=== PATIENT | female | born 1965 | race Caucasian/White ===

== ENCOUNTER 2020-03-29 15:56 | Emergency (ER) | payer SELFPAY ==
--- NOTE | ~2020-03-29 | XR_ITS ---
EXAMINATION: XR foot LT min 3V EXAM DATE: 03/29/2020 16:47 INDICATION: No known injury, bump on heel for 10 days. TECHNIQUE: Left foot dorsoplantar, lateral and oblique projections obtained and reviewed. There is n o prior study for comparison. FINDINGS: Left metatarsal bones unremarkable. Tiny inferior calcaneal spur. There are no acute calca gauri fractures or dislocations identified. Bunion and mild hallux valgus. There is no subcutaneous ga s. There is soft tissue swelling over the heel. There are no radiopaque foreign bodies. IMPRESSION: Nonspecific heel fat-pad swelling. Reviewed, dictated and finalized at location A. [employer]
[2020-03-29 16:15] VITALS: BP 174/86; PULSE 97; RESP 16; TEMP 36.6; O2SAT 98
--- NOTE | 2020-03-29 16:34 | ED.GENADULT ---
HPI - General Adult General Chief complaint: Skin/Abscess/Foreign Body Stated complaint: bottom of left foot spot Source: patient Mode of arrival: ambulatory Limitations: no limitations History of Present Illness HPI narrative: Patient presents for evaluation of lesion to the left heel. She first noticed her symptoms about a week ago. She states that she is on her feet for most of the day when she works at [employer]. She attempted to look at the affected area but it was difficult to visualize due to the anatomic location of the discomfort. She saw black spot and thought it was a plantars wart. She attempted to research this on the Internet and applied some clear nail estonian to the affected area. Seems to help reduce her pain. She does admit to smoking 1-1/2 packs/day and drinks several beers daily. She is not diabetic. She states her last tetanus shot was in the last 3 years. Weightbearing makes her pain worse. No descriptive quality or numerical rating to the pain. No radicular component. No paresthesias. Related Data Allergies Allergy/AdvReac Type Severity Reaction Status Date / Time No Known Allergies Allergy Verified 03/29/20 16:22 Review of Systems Review of Systems: Narrative: CONSTITUTIONAL: Denies fever, chills, or sweats. EYES: Denies visual changes, redness, or discharge. ENT: Denies rhinorrhea, congestion, sore throat, or otalgia. CARDIOVASCULAR: Denies chest pain, palpitations, or edema. RESPIRATORY: Denies cough or dyspnea. GASTROINTESTINAL: Denies abdominal pain, nausea, vomiting, or diarrhea. GENITOURINARY: Denies dysuria or hematuria. SKIN: Denies rash or itching. Reports a black spot to the left heel MUSCULOSKELETAL: Denies back pain. Reports pain in the left heel NEUROLOGIC: Denies headache, numbness, dizziness, or weakness. PSYCHIATRIC: Denies anxiety or depression. [facility] Past Medical History Medical History (Updated 03/29/20 @ 17:10 by Dionisio Deluca, [facility], ) Alcohol abuse Tobacco abuse Surgical History Surgical History History of hysterectomy Family History Family History Mother Heart disease Social History Social History (Updated 03/29/20 @ 16:39 by Dionisio Deluca, [facility] [place], ) Smoking packs per day: 1.5 Smoking cigarettes per day: 30.0 Smoking status: Current every day smoker Alcohol intake: current Alcohol use details: Several beers daily Substance use: never Living arrangements: alone Occupation/Education: occupation Additional occupation/education comments: [employer] Gender identity (if verbalized by the patient): Female Sexual Orientation (if Verbalized by the Patient): Straight or Heterosexual Exam Narrative: Exam Narrative: GENERAL: Well-appearing, well-nourished, and in no acute distress. HEAD: Normocephalic, atraumatic. EYES: PERRLA and EOMI. ENT: Nares clear, no rhinorrhea or epistaxis. Mucous membranes moist. Oropharynx without tonsillar hypertrophy exudate or other lesions. Bilateral TMs pearly [place] nonbulging NECK: Supple. No adenopathy or masses. No carotid bruits or JVD CHEST: Clear to auscultation. No respiratory distress. No wheezes rales or rhonchi HEART: Regular rate and rhythm. No murmur heard. Normal peripheral pulses. ABDOMEN: Soft, nontender, nondistended, normal active bowel sounds. EXTREMITIES: Normal range of motion. No edema. Tenderness noted over lesion to the left calcaneus SKIN: Warm, dry, no rash. Approximately 1.5 cm fissured lesion to the left calcaneus with surrounding hypertrophic changes NEURO: No focal deficits. Alert and oriented x3. PSYCH: Normal mood and affect. Course Course Emergency Course: This is a 55-year-old female with 1 week worth of left heel pain associated with a lesion to the heel. On physical exam there is a fissure noted but there appears to be some clear nail p
[2020-03-29 16:47] LABS: Glucose Point of Care 85 (65-105)
== END 2020-03-29 17:24 | disposition home or self-care (01) ==
PROVIDERS: Emergency Provider Nurse Practitioner
DX: L98.9 Disorder of the skin and subcutaneous tissue, unspecified (principal); M79.672 Pain in left foot; R23.4 Changes in skin texture; F17.210 Nicotine dependence, cigarettes, uncomplicated
CPT/HCPCS: 73630; 82948; 99213; G0463

== ENCOUNTER 2024-08-07 11:47 | Emergency (ER) | payer OTHER, SELFPAY ==
--- OUTSIDE RECORDS SUMMARY | 2024-08-07 11:51 | XMS_ITS | Clinical Summary ---
Author Organization [facility] Address [address] [place] [address] Care Team Providers Care Operations Accountant Name Role Phone No, Physician Primary Care Provider [phone] Allergies No known active allergies Medications nicotine (NICODERM CQ) [address] 1 patch on the skin daily. 30 patch 8 Active mometasone-formot jhoana (DULERA 100) 100-5 mcg/actuation inhalerIndication s:Prevention of Bronchospasms with Emphysema Inhale 2 puffs 2 (two) times a day. Rinse mouth with water after use to reduce aftertaste and incidence of candidiasis. Do not swallow. 13 g 1 8 Active albuterol HFA (PROVENTIL HFA,VENTOLIN HFA,PROAIR HFA) 90 mcg/actuation inhaler Inhale 2 puffs every 4 (four) hours as needed for wheezing 1 each 3 Active Active Problems Problem Noted Date Diagnosed Date Pneumonia of right middle lobe due to infectious organism COPD exacerbation Bronchitis Tobacco use disorder Surgical History Surgery Date Site/Laterality Comments HYSTERECTOMY Social History Tobacco Use Types Packs/Day Years Used Date Smoking Tobacco: Every Day Cigarettes 1 20 Smokeless Tobacco: Never Tobacco Cessation:Ready to Q uit: Yes; Counseling Given: Yes Alcohol Use Standard Drinks/Week Comments Yes 8 (1 standard drink = 0.6 oz pur e alcohol) 8 beers a day Personal Safety Answer Date Recorded Have you ever been in or are you currently in a harmful physical or emotional relationship or is someone making you feel afraid or unsafe? Denies 03/02/2023 Comments No Sex and Gender Information Value Date Recorded Sex Assigned at Not on file Legal Sex Female 10:41 AM GROUTMAN Gender Identity Not on file Sexual Orientation Not on file Obstetrics History Last Filed Vital Signs Vital Sign Reading Time Taken Comments Blood Pressure 130/68 03/02/2023 5:02 PM GROUTMAN Pulse 96 03/02/2023 5:02 PM GROUTMAN Temperature 36.7 C (98.1 F) 03/02/2023 12:46 PM GROUTMAN Respiratory Rate 18 03/02/2023 5:02 PM GROUTMAN Oxygen Saturation 91% 03/02/2023 5:02 PM GROUTMAN Inhaled Oxygen Concentration - - Weight 45.4 kg (100 lb) 03/02/2023 12:46 PM GROUTMAN Height 157.5 cm (5' 2) 03/02/2023 12:46 PM GROUTMAN Body Mass Index 18.29 03/02/2023 12:46 PM GROUTMAN Plan of Treatment Health Maintenance Due Date Last Done Comments Breast Cancer Screening-Mammogram 1963 Colon Cancer Screening-Colonoscopy 1963 Depression Screening 1963 Hepatitis C Screening 1963 DTaP/Tdap/Td Vaccine (1 - Tdap) 1974 Hepatitis B Screening 1981 Regular Well Visit/Exam 18-64 1981 Pneumococcal vaccine <65 (1 of 2 - PCV) 1982 Zoster Vaccine (1 of 2) 2013 Influenza Vaccine (Season Ended) 2024 Insurance [facility] Advance Directives For more information, please contact: [phone] * Full Code (Latest Code Status on File) Date Activated Date Inactivated Comments 06/04/2017 1:03 PM 06/06/2017 4:34 PM Care Teams Operations Accountant Relationship Specialty Start Date End Date No, Physician PCP - General 06/06/17
--- OUTSIDE RECORDS SUMMARY | 2024-08-07 11:51 | XMS_ITS | Referral Summary ---
Author Organization [facility] Address [address] [place] [address] Care Team Providers Care Powertrain Control Systems Engineer Name Role Phone No, Physician Primary Care Provider [phone] Allergies No known active allergies Medications nicotine [...] organism COPD exacerbation Bronchitis Tobacco use disorder Social History Tobacco Use Types Packs/Day Years [...] on file Legal Sex Female 10:41 AM LEAD SHIPPER Gender Identity Not on file Sexual Orientation Not on file Last Filed Vital Signs Vital Sign Reading Time Taken Comments Blood Pressure 130/68 03/02/2023 5:02 PM LEAD SHIPPER Pulse 96 03/02/2023 5:02 PM LEAD SHIPPER Temperature 36.7 C (98.1 F) 03/02/2023 12:46 PM LEAD SHIPPER Respiratory Rate 18 03/02/2023 5:02 PM LEAD SHIPPER Oxygen Saturation 91% 03/02/2023 5:02 PM LEAD SHIPPER Inhaled Oxygen Concentration - - Weight 45.4 kg (100 lb) 03/02/2023 12:46 PM LEAD SHIPPER Height 157.5 cm (5' 2) 03/02/2023 12:46 PM LEAD SHIPPER Body Mass Index 18.29 03/02/2023 12:46 PM LEAD SHIPPER Plan of Treatment Not on file Insurance [facility] Advance Directives For more information, please contact: [phone] * Full Code (Latest Code Status on File) Date Activated Date Inactivated Comments 06/04/2017 1:03 PM 06/06/2017 4:34 PM Care Teams Powertrain Control Systems Engineer Relationship Specialty Start Date End Date No, Physician PCP - General 06/06/17
--- OUTSIDE RECORDS SUMMARY | 2024-08-07 11:51 | XMS_ITS | Data Portability ---
Author Organization [facility] DONTEOralia Yusuf Address [address] [place] [address] Care Team Providers Care Shellfish Sorter Name Role Phone JADON WALSH Primary Care Provider Unavaila ble Assessment Encounter Date Assessment Date Assessment LastModified by Organization Details LastModified Time 04/17/2023 04/17/2023 Pt is a 58 year old female with no significant PMH . She is new to my care and presents to the office to establish care. She states that she produces a lot of mucus (clear) and uses an inhaler quite frequently, stating it is hard for her to breathe. She had Influenza 03/02/23 and was found to have a spot on her lung. I personally saw and examined pt w/resident. Documentation was reviewed, and I agree w/resident's note. Dr. Maldonado [email or web address] Not available 04/20/2023 11:12:42 05/15/2023 05/15/2023 Yadira Rodriguez is a 58y/o F with PMH of benign essential HTN and abnormal chest CT who presents today for her 1-month follow up. Pt's case was discussed w/resident, who is actively attempting to help pt obtain insurance and to be able to follow through with pertinent specialists. Documentation was reviewed, and I agree w/resident's note. Dr. Okeefe [email or web address] Not available 05/16/2023 18:19:09 Plan of Treatment Reminders Order Date Submit Date Provider Last Modified By Organization Details Last Modified Time Details Appointments None record ed. Lab TSH + free T4, serum 2023 024 [place] [facility], [address], [address], 4 11:12:14 lipid panel, serum 2023 024 [place] [facility], [address] [facility] [address], [place], [address], 4 11:12:48 pap, IG + CT/NG/ TV 2013 014 [place] [facility], [address] [facility], [address], [place], [address], 4 06:42:15 Referral gastro entero logist referr al [address], [address] [facility] , [place], [address], 4 11:42:06 oncolo gist referr al - Radiol ogic findin gs concer jenn for malign yareli during ED visit on . She refuse d to be admitt ed for furthe r workup due to financ ial concer ns (lack of insura nce). Kelsy lópez has been smokin g a pack a day for many years and has never had a workup for lung cancer . She curren tly uses an albute rol inhale r daily, multip le times a day as well. Spiriv a inhale r prescr ibed, howeve r, due to kelsy lópez not having insura nce, she cannot afford it at this time. Will refer to oncolo gy and pulmon ology for furthe r workup and manage ment to rule out any possib le malign yareli. 2023 024 [facility], [address] [place] [address] , [facility] [address], [place], [address], 4 14:55:21 pulmon ologis t referr al - Radiol ogic findin gs concer jenn for malign yareli during ED visit on . She refuse d to be admitt ed for furthe r workup due to financ ial concer ns (lack of insura nce). Kelsy lópez has been smokin g a pack a day for many years and has never had a workup for lung cancer . She curren tly uses an albute rol inhale r daily, multip le times a day as well. Spiriv a inhale r prescr ibed, howeve r, due to kelsy lópez not having insura nce, she cannot afford it at this time. Will refer to oncolo gy and pulmon ology for furthe r workup and manage ment to rule out any possib le malign yareli. 2023 024 [facility] Bryant Chen, [address] [facility], [place], [address], 5 14:06:42 Procedures None record ed. Surgeries None record ed. Imaging MAMMO, screen ing, bilate ral 2023 024 [email or web address] [facility], [address] [place], [address], 4 12:17:04 routin e mammog daylin exam, screen ing 2013 014 [email or web address] Not available 4 09:40:33 Medication Orders Spiriv a Respim at 2.5 mcg/ac tuatio n soluti on for inhala tion 2023 024 [id number], [address] [place], [address], 4 17:19:23 losart an 25 mg tablet 2023 024 [email or web address] [facility][id number], [address] [place], [address], 4 22:13:57 Flagyl 500 mg tablet 2013 014 INTERFACE Not available 4 16:53:06 Patient TargetsNo targets recorded. Patient Instructions Encounter Date Encounter Id Patient Instructions Last Modified By Organization Details Last Modified Time 04/17/2023 [id number] Patient has no insurance which complicates followup for patient's medical concerns. Information was provided to patient and daughter about the Rubina program at [facility] and how to apply to Medicaid. 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 She refused to be admitted for further workup due to financial concerns (lack of insurance). Patient has been smoking a pack a day for many years and has never had a workup for lung cancer. She currently uses an albuterol inhaler daily, multiple times a day as well. Spiriva inhaler prescribed, however, due to patient not having insurance, she cannot afford it at this time. Will refer to oncology and pulmonology for further workup and management to rule out any possible malignancy. Referring Physician: Jadon Walsh, General Brown, Encounter Date: 04/17/2023 Vice President Of Marketing Referral for C T of chest abnormal Radiologic findings concerning for malignancy during ED visit on 03/02/23. She refused to be admitted for further workup due to financial concerns (lack of insurance). Patient has been smoking a pack a day for many years and has never had a workup for lung cancer. She currently uses an albuterol inhaler daily, multiple times a day as well. Spiriva inhaler prescribed, however, due to patient not having insurance, she cannot afford it at this time. Will refer to oncology and pulmonology for further workup and management to rule out any possible malignancy. Referring Physician: General Stephanie Guerra, Encounter Date: 04/17/2023 Results Created Date Observation Date Name Description Value Unit Range Abnormal Flag Note LastModifiedBy Organization Detail LastModifiedTime 02/06/20 14 02/06/2014 pap, IG + CT/NG /TV age gdln acog testing 30-65 Not Available [facility] ([facility]) [address] [facility], [place], [address], 02/11/2014 06:42:14 02/06/20 14 02/08/2014 pap, IG + CT/NG /TV diagnosis: FABRICIO ROBERTSON FOR INTRA EPITH ELIAL LESIO N AND NJ BYRD . TRICH OMONA S VAGIN ESTEFANY IS PRESE NT. CELLU OREN COREAS ES ASSOC IATED WITH INFLA MMATI ON ARE PRESE NT. Not Available [facility] ([facility]) [address] [place], [address], 02/11/2014 06:42:14 02/06/20 14 02/08/2014 pap, IG + CT/NG /TV specimen adequacy: FABRICIO López SATIS FACTO RY FOR EVALU ATION . NO ENDOC ERVIC AL CELLS ARE PRESE NT. THIS IS CONSI STENT WITH A HISTO RY OF HYSTE RECTO MY. Not Available [facility] ([facility]) [address] [place], [address], 02/11/2014 06:42:14 02/06/20 14 02/08/2014 pap, IG + CT/NG /TV clinician provided ICD9: FABRICIO López V76.4 7 ; SPECI AL SCREE EJNN FOR NJ NORRIS NEOPL ASMS, VAGIN A Not Available [facility] ([facility]) [address] [place], [address], 02/11/2014 06:42:14 02/06/20 14 02/08/2014 pap, IG + CT/NG /TV performed by: FABRICIO DENNIS CYTOT MALOU López (ASCP ) Not Available [facility] ([facility]) [address] [place], [address], 02/11/2014 06:42:14 02/06/20 14 02/08/2014 pap, IG + CT/NG /TV . . Not Available [facility] ([facility]) [address] [place], [address], 02/11/2014 06:42:14 02/06/20 14 02/08/2014 pap, IG + CT/NG /TV note: COMMEN T THE PAP SMEAR IS A SCREE JENN TEST DESIG EARLINE TO AID IN THE DETEC TION OF ROBERTA LIGNA NT AND MALIG NANT CONDI TIONS OF THE UTERI NE CERVI X. IT IS NOT A DIAGN OSTIC PROCE DURE AND SHOUL D NOT BE USED THE SOLE MEANS OF DETEC TING CERVI CASIE CANCE R. BOTH FALSE -POSI TIVE AND FALSE -NEGA TIVE REPOR TS DO OCCUR . . Not Available [facility] ([facility]) [address] [place], [address], 02/11/2014 06:42:14 02/06/20 14 02/10/2014 pap, IG + CT/NG /TV HPV, high-risk NEGATI VE negati ve THIS HIGH- RISK HPV TEST DETEC TS THIRT EEN HIGH- RISK TYPES (16/1 8/31/ 33/35 /39/4 /51/ 52/56 /58/5 ) WITHO UT DIFFE RENTI ATION . . Not Available [facility] ([facility]) [address] [place], [address], 02/11/2014 06:42:14 02/06/20 14 02/10/2014 pap, IG + CT/NG /TV chlamydia, nuc. acid amp NEGATI VE negati ve Not Available [facility] ([facility]) [address] [place], [address], 02/11/2014 06:42:14 02/06/20 14 02/10/2014 pap, IG + CT/NG /TV gonococcus, nuc. acid amp NEGATI VE negati ve Not Available [facility] ([facility]) [address] [place], [address], 02/11/2014 06:42:14 02/06/20 14 02/10/2014 pap, IG + CT/NG /TV trich vag by HERON POSITI VE negati ve abnormal Not Available [facility] ([facility]) [address] [place], [address], 02/11/2014 06:42:14 04/19/19 24 04/20/2023 LIPID PANEL cholesterol, total 178 mg/dL 100-19 9 Not Available [facility] ([facility]) [address] [facility] [place], [address], 04/20/2023 11:12:48 04/19/19 24 04/20/2023 LIPID PANEL triglyceride s 58 mg/dL 0-149 Not Available [facility] ([facility]) [address] [place], [address], 04/20/2023 11:12:48 04/19/19 24 04/20/2023 LIPID PANEL HDL cholesterol 76 mg/dL >39 Not Available [facility] ([facility]) [address] [place], [address], 04/20/2023 11:12:48 04/19/19 24 04/20/2023 LIPID PANEL VLDL cholesterol casie 11 mg/dL 5-40 Not Available [facility] ([facility]) [address] [facility], [place], [address], 04/20/2023 11:12:48 04/19/19 24 04/20/2023 LIPID PANEL LDL chol calc ([facility]) 91 mg/dL 0-99 Not Available [facility] ([facility]) [address] [place], [address], 04/20/2023 11:12:48 04/19/19 24 04/20/2023 TSH RFX ON ABNOR MAL TO FREE T4 TSH 1.960 uIU/m L 0.450- 4.500 Not Available [facility] ([facility]) [address] [place], [address], 04/20/2023 11:12:49 04/20/19 24 03/02/2023 CT, chest , w/ contr ast No observ ation record ed. [email or web address] Not Available 2023 15:10:32 Result Notes None recorded. Problems Name Problem SNOMED Code Status Onset Date Resolution Date Notes Provider Name and Address Organization Details Recorded Time Wheezing 97450278 Active 2023 JADON WALSH MD Attn: Accounting ,[address] [place], [address] , [place] [facility] 4 19:25:57 CT of chest abnormal 03680111951 965855 Active 2023 JADON WALSH MD Attn: Accounting ,[address] [place], [address] , [facility] 4 08:52:03 Tobacco user 044045321 Active 2023 JADON WALSH MD Attn: Accounting ,[address] [place], [address] , [facility] 4 19:25:54 Benign essential hypertens ion 9767443 Active 2023 JADON WALSH MD Attn: Accounting ,[address] [place], [address] , [facility] 4 19:25:47 Infection by Trichomon as [id number] Completed 05/13/2023 JADON WALSH MD Attn: Accounting ,[address] [place], [address] , [place] [facility] 4 15:14:00 Notes:Vaginal bleeding a few weeks ago Problem Notes None recorded. Procedures Surgical History Date Name Laterality Status Provider Name and Address Organization Details Recorded Time 02/06/20 14 Date of Last Pap Smear completed Nataliia Araya [place] [facility] 02/11/2014 16:34:53 Hysteroscopy completed Dayna Frey [place] [facility] 15:16:14 Tubal Ligation completed Dayna Frey [facility] 02/05/2014 15:16:14 Imaging Results None recorded. Procedure Notes None recorded. Medical Equipment None Reported. Allergies No known drug allergies Medications Name Sig Start Date Stop Date Status Note LastModified by Organization Details LastModified Time ipratropium 0.5 mg-albutero l 3 mg (2.5 mg base)/3 mL nebulizatio n soln 04/17 completed Not Available Not Available Not Available azithromyci n 250 mg tablet 04/17 completed Not Available Not Available Not Available prednisone 20 mg tablet 04/17 completed Not Available Not Available Not Available diphenoxyla te-atropine 2.5 mg-0.025 mg tablet 04/17 completed Not Available Not Available Not Available Flagyl 500 mg tablet Take 1 tablet twice a day by oral route after meals for 7 days. 02/18 completed Not Available Not Available Not Available losartan 25 mg tablet TAKE 1 TABLET BY MOUTH EVERY DAY DIRECTED active Not Available Not Available No t Available nicotine 21 mg/24 hr daily transdermal patch 04/17 completed Not Available Not Available Not Available methylpredn isolone 4 mg tablets in a dose pack TAKE 6 TABLETS ON DAY 1 DIRECTED ON PACKAGE AND DECREASE BY 1 TAB EACH DAY FOR A TOTAL OF 6 DAYS 04/17 completed Not Available Not Available Not Available albuterol sulfate HFA 90 mcg/actuati on aerosol inhaler INHALE 2 PUFFS BY MOUTH EVERY 4 HOURS DIRECTED active Not Available Not Available No t Available cefdinir 300 mg capsule 04/17 completed Not Available Not Available Not Available amoxicillin 875 mg-potassiu m clavulanate 125 mg tablet TAKE 1 TABLET BY MOUTH EVERY 12 HOURS FOR 5 DAYS 04/17 completed Not Available Not Available Not Available nicotine 7 mg/24 hr daily transdermal patch Apply 1 patch every day by transderm al route as directed for 30 days. 2023 active Not Available Not Available Not Avai lable Dulera 100 mcg-5 mcg/actuati on HFA aerosol inhaler 04/17 completed Not Available Not Available Not Available Spiriva Respimat 2.5 mcg/actuati on solution for inhalation Inhale 2 puffs every day by inhalatio n route as directed for 30 days. 2023 active Not Available Not Available Not Avai lable Vitals Date Recorded Body weight Body temperature Heart rate Oxygen saturation Oxygen saturation in Arterial blood by Pulse oximetry Systolic blood pressure Diastolic blood pressure Provider Name and Address Organization Details Last Updated DateTime 4 65716.3 5 g 98.1 [degF] 94 /min 95 % 95 % 174 mm[Hg] 82 mm[Hg] Merlene Farrar MA [facility] 4 16:16:35 Date Recorded Systolic blood pressure Diastolic blood pressure Provider Name and Address Organization Details Last Updated DateTime 04/17/2023 160 mm[Hg] 82 mm[Hg] Flores Hardin MA [facility] 04/17/2023 17:16:54 Date Recorded Body weight Body mass index (BMI) Body height Body temperature Heart rate Oxygen saturation Oxygen saturation in Arterial blood by Pulse oximetry Respiratory rate Systolic blood pressure Diastolic blood pressure Provider Name and Address Organization Details Last Updated DateTime 4 50028.7 9 g 19.4 kg/m2 157.48 cm 97.6 [degF] 82 /min 99 % 99 % 16 /min 147 mm[Hg] 83 mm[Hg] Merlene Farrar MA [facility] 4 16:17:09 Date Recorded Body height Body mass index (BMI) Body weight Systolic blood pressure Diastolic blood pressure Provider Name and Address Organization Details Last Updated DateTime 02/05/2014 157.48 cm 21.4 kg/m2 40571.30 729 g 142 mm[Hg] 80 mm[Hg] Dayna Frey [facility] 4 15:16:14 Date Recorded Body height Body mass index (BMI) Body weight Systolic blood pressure Diastolic blood pressure Provider Name and Address Organization Details Last Updated DateTime 02/11/2014 157.48 cm 21.4 kg/m2 22338.30 729 g 128 mm[Hg] 80 mm[Hg] Nataliia Araya [facility] 4 16:34:53 Social History Question Answer Notes LastModified by Organizat ion Details LastModified Time Tobacco Smoking Status Current Every Day Smoker Dayna Frey [facility] 02/05/2014 15:16:14 What Was The Date Of Your Most Recent Tobacco Screening? 05/15/2023 Information not available 05/15/2023 How Many Children Do You Have? 3 Information not available 02/05/2014 What Is Your Relationship Status? [email or web address] Information not available 02/05/2014 Are You Sexually Active? Yes Information not available 02/05/2014 At What Age Did You Start Smoking Tobacco? 14 [email or web address] Information not available 02/05/2014 How Much Tobacco Do You Smoke? 1 PPD Information not available 04/17/2023 Has Tobacco Cessation Counseling Been Provided? No Information not available 04/17/2023 Sex: Female Functional Status None recorded. Mental Status None recorded. Family History Relationship Description Onset Age of this Age Resolved Age Notes LastModified by Organization Details LastModified Time Mother Heart disease [email or web address] Not available 2013 15:16:14 Medical History Condition Response Cancer Y Gynecological History Statement/Question Response Menses Monthly N Date of Last Pap Smear 02/05/2014 Current Control Method Hysterectom y Most Recent Mammogram Sexually Active? Y Obstetrics History GPAL:G 3 P 3 0 0 3 Type Value Full Term 3 Living 3 Total 3 Past Encounters Encounter ID Performer Location Encounter Start Date Encounter Closed Date Diagnosis/Indication Diagnosis SNOMED-CT Code Diagnosis ICD10 Code Diagnosis Note [id number] MD Dedrick Duran ([place] [address]) [address] [facility] [facility] [place] [address] 02/05/2014 14:55:01 02/06/2014 09:44:51 Screening for cancer [id number] MD Dedrick Duran ([facility] [place] [address]) [address] [place] [address] 02/11/2014 16:19:32 02/11/2014 16:57:22 Infection by Trichomonas [id number] MD Dedrick Sen 14 IM [address] [facility] [facility] [address] [place], [place] [address], [place] [address] 04/17/2023 15:41:55 04/24/2023 07:54:20 Adult health examination 496092391 Z00.00 Patient presents today to establish care. Wheezing 80091224 R06.2 Wheezing present on exam. States that she has wheezing daily and uses his albuterol inhaler frequently throughout the day. In light of recent CT chest that shows possible mass to lung, will refer to pulmonolog y as well as to oncology. Will also start Spiriva inhaler for maintenanc e use. Screening mammography 24 524578 Z12.31 Patient has never had a mammogram, will refer. Screening for malignant neoplasm of colon 390812418 Z12.11 Patient has never had a colonoscop y, will refer. CT of chest abnormal 929 0182043 0912793 R93.89 Radiologic findings concerning for malignancy . Patient has been smoking a pack a day for many years and has never had a workup for lung cancer. She currently uses an albuterol inhaler daily, multiple times a day as well. Spiriva inhaler prescribed , however, due to patient not having insurance, she cannot afford it at this time. Will refer to oncology and pulmonolog y for further workup and management to rule out any possible malignancy . Benign ess ential hypertension 7215210 I10 [id number] MD Dedrick Sen 14 IM [address] [facility] [address] [place] [address] 05/15/2023 16:06:13 05/17/2023 08:53:58 CT of chest abnormal [id number] 0654138 R93.89 Radiologic findings concerning for malignancy . Patient has been smoking a pack a day for many years and has never had a workup for lung cancer. She currently uses an albuterol inhaler daily, multiple times a day as well. Spiriva inhaler prescribed , however, due to patient not having insurance, she cannot afford it at this time. Referrals sent to pulmonolog y and oncology. Patient needs to get set up with insurance first and then call to get appointmen t to see pulmonolog y. Referral printout provided to patient today in clinic. Health Concerns Section Related Observation LastModified by Organization Detai ls LastModified Time None Recorded Concern Status LastModified by Organization Details LastModified Time None Recorded Advance Directives Directive None Recorded Payers Encounter Date Sequence Insurance Name Policy Number Policy Singh Covered Member ID Singh Member ID Guarantor Name 02/05/2014 1 [facility] (MEDICAID HMO) Yadira Livezey [id number] Yadira Livezey 02/11/2014 1 [employer] (MEDICAID HMO) Yadira Livezey [id number] Yadira Livezey 04/17/2023 1 *SELF PAY* Orozco Notes Date Note Type Note Provider Name and Address Organization Details Recorded Time 04/17/2023 text/html HPIPt is a 58 ye ar old female with no significant PMH . She is new to my care and presents to the office to establish care. She states that she produces a lot of mucus (clear) and uses an inhaler quite frequently, stating it is hard for her to breathe. She had Influenza 03/02/23 and was found to have a spot on her lung. It was recommended that patient be admitted for further workup at that time, however due to financial strain she elected to not be admitted. Past Medical History - as noted in HPIAllergies: NoneMedications: Albuterol inhaler daily, multiple times Family HistoryMom: Triple bypass, HTN, HLD, DMDad: UnknownSiblings: Unknown Social HistoryRelationship: Not in relationshipKids: 3 kids, 2 still livingSafe: YesWork: Works at [employer] Eats CEDU daily, also eats fruit and veggiesExercise: Walks a lot on the jobETOH: Drinks alcohol daily (couple of beers a day)Tobacco: Smokes pack a day since high schoolDrugs: THC vape, no other drugs Sexual historyPrevious STD: No past historyLast time had STD testing: Not UTD Health maintenanceLast Colonoscopy: Not UTDLast Mammo: Not UTDPap: Not UTDCOVID: Not UTDFlu: Not UTD Patient has no insurance which complicates followup for patient's medical concerns. Information was provided to patient and daughter about the Rubina program at [facility] and how to apply to Medicaid. JADON WALSH MD Attn: Accounting,[address] [place], [address], [facility] 04/21/2023 16:33:26 05/15/2023 text/html Yadira Rodriguez i s a 58y/o F with PMH of benign essential HTN and abnormal chest CT who presents today for her 1-month follow up. Today, patient denies any SOB, CP, cough or wheezing. She states that she feels fine but has not been able to get in to see pulmonology or oncology. She states they have tried contacting her but have not been able to reach her. She also states that she was told she would not be able to see them unless I spoke with them first. I printed both referrals for patient and called with her in the room to help get her set up. Patient does not have any insurance and is currently self-pay. Provided information about insurance at previous visit, but patient states she cannot afford it. While on the phone, the rep stated patient should be able to get set up with [employer] for insurance and would mail her the information to fill out today. Patient agreed. Goal is for patient to get set up with insurance, and then to call to get set up with pulmonology appointment. Shahram Okeefe MD Attn: Accounting[address] [facility], [place], [address], [facility] 05/16/2023 18:19:20 OBGyn Episode No OBEpisode recorded.
--- OUTSIDE RECORDS SUMMARY | 2024-08-07 11:51 | XMS_ITS | Clinical Summary ---
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 Gender Identity Not on file Sexual Orientation Not on file Plan of Treatment Health Maintenance Due Date Last Done Comments Hepatitis C Virus (HCV) Screening 1965 Mammogram 1963 TdaP Immunization 1963 Pap Smear 01/12/1984 Cervical Cancer Screening (CCS) 1993 HPV/Cotest 1993 Colonoscopy 01/12/2008 Colorectal Cancer Screening 01/12/2008 Cologuard 2013 Immunochemical Fecal Occult Blood 2013 Pneumococcal Immunization (5 0+ years) (1 of 1 - PCV) 2013 Zoster Immunization (1 of 2) 2013 Influenza Immunization (#1) 2023 SARS-COV-2 Immunization (2023- season) 2023 Respiratory Syncytial Virus (RSV) Immunization (Adult) (1 - 1-dose 75+ series) 2038 Hepatitis B Immunization Aged Out No longer eligible based on patient's age to complete this topic Meningococcal Immunization (ACWY) Aged Out No longer eligible based on patient's age to complete this topic Rotavirus Immunization Aged Out No lo nger eligible based on patient's age to complete this topic
--- OUTSIDE RECORDS SUMMARY | 2024-08-07 11:51 | XMS_ITS | Clinical Summary ---
Author Organization [facility] Address [address] [place] [address] Care Team Providers Care Undercar Specialist Name Role Phone Unknown, Provider Primary Care Provider Unavaila ble Source Comments [facility],non-[facility] Affiliates and Associated Physician Practices is amultiple site organization consisting of ambulatory clinics and hospital sitesin [place], [place], [place] and [place]. This disclosure is being madepursuant to the Care Everywhere program and may not contain all information available regarding this patient. Last updated 17.[facility] Link[employer] Social History Tobacco Use Types Packs/Day Years Used Date Smoking Tobacco: Never Assessed Comments Unknown Sex and Gender Information Value Date Recorded Sex Assigned at Not on file Legal Sex Female 3:23 PM CDT Gender Identity Not on file Sexual Orientation Not on file Plan of Treatment Health Maintenance Due Date Last Done Comments COLOGUARD (AGES 45-75) - COL ON CA SCREENING 1963 COLON MONITORING 1963 COLONOSCOPY - COLON CA SCREENING 1963 CT COLONOGRAPHY - COLON CA SCREENING 1963 Colorectal Cancer Screening 1963 FIT - COLON CA SCREENING 1963 FLEX SIG - COLON CA SCREENING 1963 LIPID TESTING 1963 MAMMOGRAM 1963 HIV SCREENING 1978 HEPATITIS C SCREENING 01/06/1981 DTAP/TDAP/TD VACCINES (1 - Tdap) 1982 PNEUMOCOCCAL VACCINE 50+ (1 of 1 - PCV) 2013 ZOSTER VACCINE (1 of 2) 2013 COVID-19 VACCINE (1 - 2023-2 5 season) 2023 DEPRESSION SCREENING 03/06/2024 INFLUENZA VACCINE (Season Ended) 2024 Respiratory Syncytial Virus (RSV) Vaccine Pt: or over 60 yrs (1 - 1-dose 75+ series) 2038 HEPATITIS B VACCINE Aged Out No longe r eligible based on patient's age to complete this topic HIB VACCINE Aged Out No longer eligi ble based on patient's age to complete this topic HPV VACCINE Aged Out No longer eligi ble based on patient's age to complete this topic MENINGOCOCCAL (Group B) VACC INE SHARED DECISION-MAKING Aged Out No longer eligibl e based on patient's age to complete this topic MENINGOCOCCAL GROUPS A/C/Y/W VACCINE Aged Out No longer eligible b ased on patient's age to complete this topic Care Teams Undercar Specialist Relationship Specialty Start Date End Date Unknown, Provider PCP - General 12/31/15
[2024-08-07 12:00] VITALS: BP 152/62; PULSE 95; RESP 18; TEMP 37.1; O2SAT 99
--- NOTE | 2024-08-07 12:27 | ED.NAVMDI ---
HPI - Nausea/Vomiting/Diarrhea General Chief complaint: Abdominal Pain Stated complaint: abdominal pain, diarrhea Source: patient Mode of arrival: ambulatory Limitations: no limitations History of Present Illness HPI Narrative: Patient is a 59 year old female who presents to the clinic for complaints of diarrhea for 2 days. She states that she ate at [email or web address] two days and has been having diarrhea since. She has not been able to tolerate any food the last two days. She has not taken anything over the counter. Denies any fevers, nausea, or vomiting. Related Data Home Medications ?Medication ?Instructions ?Recorded ?Confirmed ?Last Taken ?Type albuterol sulfate 90 mcg/actuation inhalation 08/07/24 Unknown History aerosol inhaler losartan 25 mg tablet mg 08/07/24 Unknown History Allergies Allergy/AdvReac Type Severity Reaction Status Date / Time No Known Allergies Allergy Verified 08/07/24 12:01 Review of Systems Review of Systems: CONSTITUTIONAL: Denies body aches, fever, chills, or sweats. EYES: Denies visual changes, redness, or discharge. ENT: Denies rhinorrhea, congestion, sore throat, or otalgia. CARDIOVASCULAR: Denies chest pain, palpitations, or edema. RESPIRATORY: Denies cough or dyspnea. GASTROINTESTINAL: Denies abdominal pain, nausea, vomiting, CVA Tenderness. Reports diarrhea. GENITOURINARY: Denies dysuria or hematuria. SKIN: Denies rash, itching, or wounds. MUSCULOSKELETAL: Denies back pain, joint pain, or myalgia. NEUROLOGIC: Denies headache, numbness, tingling, or weakness. PSYCH: Denies depression or anxiety. All systems reviewed & are unremarkable except as noted in HPI and below PMFSH Past Medical History Medical History Tobacco abuse Alcohol abuse Surgical History Surgical History History of hysterectomy Family History Family History Mother Heart disease Social History Social History Smoking packs per day: 1.5 Smoking cigarettes per day: 30.0 Smoking status: Current every day smoker Alcohol intake: current Alcohol use details: Several beers daily Substance use: never Living arrangements: alone Occupation/Education: occupation Additional occupation/education comments: [employer] Gender identity (if verbalized by the patient): Female Sexual Orientation (if Verbalized by the Patient): Straight or Heterosexual Comments At time of signature, I have reviewed and agree with nursing past medical, surgical, social and family history unless otherwise noted. Please see nursing chart for further information. There is no relevant family history pertinent to the presenting complaint. Exam Narrative: GENERAL: Well-appearing, well-nourished, and in no acute distress. HEAD: Normocephalic, atraumatic. EYES: PERRLA, conjunctivae clear, and EOMI. ENT: Mucous membranes moist. CHEST: Speaks in full sentences. No respiratory distress. HEART: Regular rate and rhythm. ABDOMEN: Soft, flat, nondistended. No guarding, rebound tenderness, or rigid. No pulsatile masses. Bowel sounds x4 No organomegaly. Negative Davis?s sign. No periumbilical tenderness. No Supra public tenderness or distension. Good femoral pulses bilaterally. No hernia noted. No scars or surface trauma. SKIN: Warm, dry, no rash. NEURO: Alert and oriented x3. PSYCH: Normal mood and affect Course Course Level of Care: Express Care Visit Vital Signs Vital signs: Vital Signs Temperature 98.8 F 08/07/24 12:00 Pulse Rate 95 08/07/24 12:00 Respiratory Rate 18 08/07/24 12:00 Blood Pressure 152/62 H 08/07/24 12:00 Pulse Oximetry 99 08/07/24 12:00 Oxygen Delivery Room Air 08/07/24 12:00 Temperature 98.8 F 08/07/24 12:00 Pulse Rate 95 08/07/24 12:00 Respiratory Rate 18 08/07/24 12:00 Blood Pressure 152/62 H 08/07/24 12:00 Pulse Oximetry 99 08/07/24 12:00 Oxygen Delivery Room Air 08/07/24 12:00 reviewed. MDM - Nausea/Vomiting/Diarrhea MDM Narrative Medical decision making narrative: Discussed physical exam findings. Advised supportive measures and signs/symptoms to go to the ER. Pt is appropriate for outpatient treatment and follow up. Differential Diagnosis Differential diagnosis: Likely traveler's diarrhea, food poisoning and gastroenteritis Critical Care Time Critical Care Time Critical Care Time: No Discharge Plan Discharge Clinical Impression: Gastroenteritis Patient Disposition: Home Condition: Stable Instructions: Acute Nausea and Vomiting (DC) Additional Instructions: Stay hydrated. Take small sips of fluid containing electrolytes frequently. Clear liquids (broth, jello, tea, sprite, pedialyte) [place] foods (bananas, rice, applesauce, toast, crackers) Avoid fatty, greasy, fried or spicy foods. Limit dairy until symptoms are improved. [id number] Imodium according to package directions Recommend probiotic such as align or lactobacillus to help with symptoms. You should go to the hospital if you experience persistent nausea and vomiting that does not resolve and does not allow you to tolerate any food or fluids, fevers, increasing abdominal pain, persistent diarrhea, dizziness, fainting, or for any other concerns. Follow up with primary care provider in 3 days. Patient Language: Bahamian Prescriptions: No Action losartan 25 mg tablet albuterol sulfate 90 mcg/actuation HFA aerosol inhaler INHALATION Follow-up/Referrals: PHYSICIAN,BILINGUAL OFFICE ASSISTANT [Primary Care Provider] - Stand Alone Forms: Work/School Release IP Time of Disposition: 12:28
== END 2024-08-07 12:31 | disposition home or self-care (01) ==
DX: K52.9 Noninfective gastroenteritis and colitis, unspecified (principal); F17.210 Nicotine dependence, cigarettes, uncomplicated
CPT/HCPCS: 99211; G0463

== ENCOUNTER 2024-08-11 13:09 | Emergency (ER) | payer OTHER, SELFPAY ==
--- NOTE | ~2024-08-11 | US_ITS ---
EXAMINATION: US pelvic complete DATE: 08/11/2024 18:10 INDICATION: LEFT ADNEXAL MASS TECHNIQUE: Multiple transabdominal and endovaginal sonographic images of the pelvis were obtained. COMPARISON: None. FINDINGS: Uterus: Surgically absent. Right Ovary: Not visualized. Left Ovary: Left ovary is not discretely visualized. Large multilobulated multiseptated left adnexal mass. Irregular areas of wall thickening and nodularity. Nonvascular internal echogenicity (CS 1). Ma ss measures at least 14.9 cm it is difficult to completely include within the transducer [id number]. ORADS 4. There is no free fluid in the pelvis. IMPRESSION: Large complex left adnexal mass. Prior recommendations for pelvic MRI and gynecology or gynecology/on cology consultation are unchanged. Reviewed, dictated and finalized at location K. IMPRESSION: Large complex left adnexal mass. Prior recommendations for pelvic MRI and gynec ology or gynecology/oncology consultation are unchanged.
--- NOTE | ~2024-08-11 | CT_ITS ---
EXAMINATION: CT abdomen pelvis w con DATE: 08/11/2024 15:27 INDICATION: UPPER ABDOMINAL PAIN TECHNIQUE: Computed tomography (CT) of the abdomen and pelvis was performed with 100 mL Omnipaque-350 intravenous contrast. Automated exposure control and iterative reconstruction technique were employe d. The dose-length product was 177.20 mGy-cm. COMPARISON: None. FINDINGS: Lower thorax: Unremarkable Liver: Normal. Biliary/Gallbladder: Gallbladder is normal. The common bile duct measures 8 mm, without inflammatory change. Prominent soft tissue density at the sphincter of Oddi, measuring 13 mm. No obstructing stone . No intrahepatic duct dilation Pancreas: No mass or duct dilation. Spleen: Normal. Adrenals:No mass. Kidneys: No suspicious mass, obstructing stone, or hydronephrosis. GI tract: Mild distal esophageal and gastric wall edema. No small or large bowel dilation. Normal alyssa endix. Mesentery/Peritoneum: No mass or free air. Retroperitoneum: No mass. Atherosclerotic calcifications of intra-abdominal arterial vessels. Pelvis: Large left adnexal mass with cystic and solid components, measuring 12.3 AP x 19.0 transverse x 15.9 craniocaudad. The solid component is partially calcified, measuring 4.9 x 6.0 cm, and may rep resent an enlarged left ovary. Right ovary measuring 4.3 x 2.4 cm, associated with a simple cyst. Inc ompletely distended urinary bladder. Small volume fluid in the deep pelvis. The uterus is surgically absent. Soft Tissues: Soft tissues and body wall unremarkable. Bones: No acute osseous finding. IMPRESSION: Mild esophagitis/gastritis. 8 mm common bile duct. Possible soft tissue mass at the sphincter of Oddi. Correlate with biliary lab s. Recommend GI consultation for possible ERCP. Large left adnexal mass measuring up to 15.9 cm with cystic and solid components. Recommend pelvic MR I and gynecology or gynecology/oncology consultation. Trace pelvic ascites. Reviewed, dictated and finalized at location K. IMPRESSION: Mild esophagitis/gastritis. 8 mm common bile duct. Possible soft tissue mass at the sphincter of Oddi. Emiliana elate with biliary labs. Recommend GI consultation for possible ERCP. Large left adnexal mass measuring up to 15.9 cm with cystic and solid component s. Recommend pelvic MRI and gynecology or gynecology/oncology consultation. Trace pelvic ascites.
--- NOTE | ~2024-08-11 | US_ITS ---
EXAMINATION: US abdomen limited DATE: 08/11/2024 18:05 INDICATION: GALLBLADDER TECHNIQUE: Multiple grayscale and Doppler ultrasound images of limited portions of the abdomen were o btained. COMPARISON: CT abdomen pelvis, same date. FINDINGS: The main pancreatic duct is dilated to 3 mm. The liver is normal with normal echogenicity a nd echotexture. No surface nodularity. Normal hepatopetal flow in the main portal vein. Mild gallblad marlin wall thickening to 3 mm. 5 mm echogenic nonmobile bile focus adherent to the gallbladder wall, wi th twinkle artifact. No pericholecystic fluid The common bile duct measures 9 mm. There was no sonogr aphic Davis sign. Small volume perihepatic fluid. IMPRESSION: Common bile duct and mild pancreatic duct dilation. Nonspecific gallbladder wall thickening. Likely g allstone, adherent to the gallbladder wall. Small volume ascites. Reviewed, dictated and finalized at location K. IMPRESSION: Common bile duct and mild pancreatic duct dilation. Nonspecific gallbladder wal l thickening. Likely gallstone, adherent to the gallbladder wall. Small volume ascites.
--- OUTSIDE RECORDS SUMMARY | 2024-08-11 13:11 | XMS_ITS | Clinical Summary ---
Author Organization [facility] Address [address] [place] [address] Care Team Providers Care Construction Administrative Assistant Name Role Phone Unavailable Primary Care Provider Unavailabl e Social History Tobacco Use Types Packs/Day Years Used Date Smoking Tobacco: Never Assessed Comments Unknown Sex and Gender Information Value Date Recorded Sex Assigned at Not on file Legal Sex Female 9:35 AM DIRECTOR EHS Gender Identity Not on file Sexual Orientation [...]
--- OUTSIDE RECORDS SUMMARY | 2024-08-11 13:11 | XMS_ITS | Clinical Summary ---
Author Organization [facility] Address [address] [place] [address] Care Team Providers Care Business Machine Mechanic Name Role Phone No, Physician Primary Care Provider [phone] Allergies No known active allergies Medications nicotine [...] on file Legal Sex Female 10:41 AM ASSISTANT CREDIT MANAGER Gender Identity Not on file Sexual Orientation Not on file Obstetrics History Last Filed Vital Signs Vital Sign Reading Time Taken Comments Blood Pressure 130/68 03/02/2023 5:02 PM ASSISTANT CREDIT MANAGER Pulse 96 03/02/2023 5:02 PM ASSISTANT CREDIT MANAGER Temperature 36.7 C (98.1 F) 03/02/2023 12:46 PM ASSISTANT CREDIT MANAGER Respiratory Rate 18 03/02/2023 5:02 PM ASSISTANT CREDIT MANAGER Oxygen Saturation 91% 03/02/2023 5:02 PM ASSISTANT CREDIT MANAGER Inhaled Oxygen Concentration - - Weight 45.4 kg (100 lb) 03/02/2023 12:46 PM ASSISTANT CREDIT MANAGER Height 157.5 cm (5' 2) 03/02/2023 12:46 PM ASSISTANT CREDIT MANAGER Body Mass Index 18.29 03/02/2023 12:46 PM ASSISTANT CREDIT MANAGER Plan of Treatment Health Maintenance Due Date Last Done Comments Breast Cancer Screening-Mammogram 1963 Colon Cancer Screening-Colonoscopy 1963 Depression Screening 1963 Hepatitis C Screening 1963 DTaP/Tdap/Td Vaccine (1 - Tdap) 1974 Hepatitis B Screening 1981 Regular Well Visit/Exam 18-64 1981 Pneumococcal vaccine <65 (1 of 2 - PCV) 1982 Zoster Vaccine (1 of 2) 2013 Influenza Vaccine (Season Ended) 2024 Insurance [facility] Advance Directives For more information, please contact: [phone] * Full Code (Latest Code Status on File) Date Activated Date Inactivated Comments 06/04/2017 1:03 PM 06/06/2017 4:34 PM Care Teams Business Machine Mechanic Relationship Specialty Start Date End Date No, Physician PCP - General 06/06/17
--- OUTSIDE RECORDS SUMMARY | 2024-08-11 13:11 | XMS_ITS | Referral Summary ---
Author Organization [facility] Address [address] [place] [address] Care Team Providers Care Brine Supervisor Name Role Phone No, Physician Primary Care Provider Allergies No known active allergies Medications nicotine [...] on file Legal Sex Female 10:41 AM SPECIFICATION WRITER Gender Identity Not on file Sexual Orientation Not on file Last Filed Vital Signs Vital Sign Reading Time Taken Comments Blood Pressure 130/68 03/02/2023 5:02 PM SPECIFICATION WRITER Pulse 96 03/02/2023 5:02 PM SPECIFICATION WRITER Temperature 36.7 C (98.1 F) 03/02/2023 12:46 PM SPECIFICATION WRITER Respiratory Rate 18 03/02/2023 5:02 PM SPECIFICATION WRITER Oxygen Saturation 91% 03/02/2023 5:02 PM SPECIFICATION WRITER Inhaled Oxygen Concentration - - Weight 45.4 kg (100 lb) 03/02/2023 12:46 PM SPECIFICATION WRITER Height 157.5 cm (5' 2) 03/02/2023 12:46 PM SPECIFICATION WRITER Body Mass Index 18.29 03/02/2023 12:46 PM SPECIFICATION WRITER Plan of Treatment Not on file Insurance [facility] Advance Directives For more information, please contact: [phone] * Full Code (Latest Code Status on File) Date Activated Date Inactivated Comments 06/04/2017 1:03 PM 06/06/2017 4:34 PM Care Teams Brine Supervisor Relationship Specialty Start Date End Date No, Physician PCP - General 06/06/17
--- OUTSIDE RECORDS SUMMARY | 2024-08-11 13:11 | XMS_ITS | Data Portability ---
Author Organization [facility] DONTEOralia Yusuf Address [address] [facility] [facility] [place] [place] [address] Care Team Providers Care Occupational Nurse Name Role Phone JADON WALSH Primary Care [...] and I agree w/resident's note. Dr. Okeefe [email or web address] Not available 05/16/2023 18:19:09 Plan of Treatment Reminders Order Date Submit Date Provider Last Modified By Organization Details Last Modified Time Details Appointments None record ed. Lab TSH + free T4, serum 2023 024 [place] [facility], [address], [address], 4 11:12:14 lipid panel, serum 2023 024 [place] [facility], [address] [facility] [address], [place], [address], 4 11:12:48 pap, IG + CT/NG/ TV 2013 014 [place] [facility], [address] [facility], [address], [place], [address], 4 06:42:15 Referral gastro entero logist referr al [address], [address] , [place], [address], 4 11:42:06 oncolo gist referr al - [...] any possib le malign yareli. 2023 024 [email or web address], [address] [place] [address] , [facility] [address], [place], [address], 4 14:55:21 pulmon ologis t referr al [...] yareli. 2023 024 MARIUS[place] Bryant Chen, [address] [facility], [place], [address], 5 14:06:42 Procedures None record ed. Surgeries None record ed. Imaging MAMMO, screen ing, bilate ral 2023 024 [email or web address] [facility], [address] [place], [address], 4 12:17:04 routin e mammog daylin exam, screen ing 2013 014 [email or web address] Not available 4 09:40:33 Medication Orders Spiriv a Respim at 2.5 mcg/ac tuatio n soluti on for inhala tion 2023 024 MAR[facility]US[facility][id number], [address] [place], [address], 4 17:19:23 losart an 25 mg tablet 2023 024 [email or web address] [facility][id number], [address] [place], [address], 4 22:13:57 Flagyl 500 mg tablet 2013 014 INTERFACE Not available 4 16:53:06 Patient TargetsNo targets recorded. Patient Instructions Encounter Date Encounter Id Patient Instructions Last Modified By Organization Details Last Modified Time 04/17/2023 [id number] Patient has no insurance which complicates followup for patient's medical concerns. Information was provided to patient and daughter about the Rubina program at [facility] and how to apply to Medicaid. [email or web address] Not available 04/19/2023 08:47:08 Reason for Referral Shipping Hand Referral for Screening for malignant neoplasm of colon Referring Physician: Jadon Walsh, Shed Hand, Encounter Date: 04/17/2023 Radiologic findings concerni ng [...] Jadon Walsh, General Brown, Encounter Date: 04/17/2023 Contracting Engineer Referral for C T of chest abnormal [...] testing 30-65 Not Available [facility] ([facility]) [address] [facility], [place], [address], 02/11/2014 06:42:14 02/06/20 14 02/08/2014 pap, IG + CT/NG /TV diagnosis: FABRICIO ROBERTSON FOR INTRA EPITH ELIAL LESIO N AND NJ BYRD . TRICH OMONA S VAGIN ESTEFANY IS PRESE NT. CELLU OREN COREAS ES ASSOC IATED WITH INFLA MMATI ON ARE PRESE NT. Not Available [facility] ([facility]) [address] [place], [address], 02/11/2014 06:42:14 02/06/20 14 02/08/2014 pap, IG + CT/NG /TV specimen adequacy: FABRICIO López SATIS FACTO RY FOR EVALU ATION . NO ENDOC ERVIC AL CELLS ARE PRESE NT. THIS IS CONSI STENT WITH A HISTO RY OF HYSTE RECTO MY. Not Available [facility] ([facility]) [address] [place], [address], 02/11/2014 06:42:14 02/06/20 14 02/08/2014 pap, IG + CT/NG /TV clinician provided ICD9: FABRICIO López V76.4 7 ; SPECI AL SCREE JENN FOR NJ NORRIS NEOPL ASMS, VAGIN A Not Available [facility] ([facility]) [address] [place], [address], 02/11/2014 06:42:14 02/06/20 14 02/08/2014 pap, IG + CT/NG /TV performed by: FABRICIO DENNIS CYTOT MALOU López (ASCP ) Not Available [facility] ([facility]) [address] [place], [address], 02/11/2014 06:42:14 02/06/20 14 02/08/2014 pap, IG + CT/NG /TV . . Not Available [facility] ([facility]) [address] [place], [address], 02/11/2014 06:42:14 02/06/20 14 02/08/2014 pap, IG [...] DO OCCUR . . Not Available [facility] ([facility]) [address] [place], [address], 02/11/2014 06:42:14 02/06/20 14 02/10/2014 pap, IG + CT/NG /TV HPV, high-risk NEGATI VE negati ve THIS HIGH- RISK HPV TEST DETEC TS THIRT EEN HIGH- RISK TYPES (16/1 8/31/ 33/35 /39/4 /51/ 52/56 /58/5 ) WITHO UT DIFFE RENTI ATION . . Not Available [facility] ([facility]) [address] [place], [address], 02/11/2014 06:42:14 02/06/20 14 02/10/2014 pap, IG + CT/NG /TV chlamydia, nuc. acid amp NEGATI VE negati ve Not Available [facility] ([facility]) [address] [place], [address], 02/11/2014 06:42:14 02/06/20 14 02/10/2014 pap, IG + CT/NG /TV gonococcus, nuc. acid amp NEGATI VE negati ve Not Available [facility] ([facility]) [address] [place], [address], 02/11/2014 06:42:14 02/06/20 14 02/10/2014 pap, IG + CT/NG /TV trich vag by HERON POSITI VE negati ve abnormal Not Available [facility] ([facility]) [address] [place], [address], 02/11/2014 06:42:14 04/19/19 24 04/20/2023 LIPID PANEL cholesterol, total 178 mg/dL 100-19 9 Not Available [facility] ([facility]) [address] [facility] [place], [address], 04/20/2023 11:12:48 04/19/19 24 04/20/2023 LIPID PANEL triglyceride s 58 mg/dL 0-149 Not Available [facility] ([facility]) [address] [place], [address], 04/20/2023 11:12:48 04/19/19 24 04/20/2023 LIPID PANEL HDL cholesterol 76 mg/dL >39 Not Available [facility]) [address] [place], [address], 04/20/2023 11:12:48 04/19/19 24 04/20/2023 LIPID PANEL VLDL cholesterol casie 11 mg/dL 5-40 Not Available [facility] ([facility]) [address] [facility], [place], [address], 04/20/2023 11:12:48 04/19/19 24 04/20/2023 LIPID PANEL LDL chol calc ([facility]) 91 mg/dL 0-99 Not Available [facility] ([facility]) [address] [place], [address], 04/20/2023 11:12:48 04/19/19 24 04/20/2023 TSH RFX ON ABNOR MAL TO FREE T4 TSH 1.960 uIU/m L 0.450- 4.500 Not Available [facility] ([facility]) [address] [place], [address], 04/20/2023 11:12:49 04/20/19 24 03/02/2023 CT, chest , w/ contr ast No observ ation record ed. [email or web address] Not Available 2023 15:10:32 Result Notes None recorded. Problems Name Problem SNOMED Code Status Onset Date Resolution Date Notes Provider Name and Address Organization Details Recorded Time Wheezing 68163302 Active 2023 JADON WALSH MD Attn: Accounting ,[address] [place], [address] , [place] [facility] 4 19:25:57 CT of chest abnormal 96667713930 432970 Active 2023 JADON WALSH MD Attn: Accounting ,[address] [place], [address] , [facility] 4 08:52:03 Tobacco user 534093145 Active 2023 JADON WALSH MD Attn: Accounting ,[address] [place], [address] , [facility] 4 19:25:54 Benign essential hypertens ion 4121631 Active 2023 JADON WALSH MD Attn: Accounting ,[address] [place], [address] , [facility] 4 19:25:47 Infection by Trichomon as [id number] Completed 05/13/2023 JADON WALSH MD Attn: Accounting ,[address] [place], [address] , [place] [facility] 4 15:14:00 Notes:Vaginal bleeding a few weeks ago Problem Notes None recorded. Procedures Surgical History Date Name Laterality Status Provider Name and Address Organization Details Recorded Time 02/06/20 14 Date of Last Pap Smear completed Natal[place]ia Araya [place] 02/11/2014 16:34:53 Hysteroscopy completed Dayna Frey [place] [facility] 15:16:14 Tubal Ligation completed Dayna Frey [facility] 02/05/2014 15:16:14 Imaging Results None recorded. [...] Address Organization Details Last Updated DateTime 4 83977.3 5 g 98.1 [degF] 94 /min 95 % 95 % 174 mm[Hg] 82 mm[Hg] Merlene Farrar MA [facility] 4 16:16:35 Date Recorded Systolic blood pressure Diastolic blood pressure Provider Name and Address Organization Details Last Updated DateTime 04/17/2023 160 mm[Hg] 82 mm[Hg] Flores Hardin MA [facility] 04/17/2023 17:16:54 Date Recorded Body weight Body mass index (BMI) Body height Body temperature Heart rate Oxygen saturation Oxygen saturation in Arterial blood by Pulse oximetry Respiratory rate Systolic blood pressure Diastolic blood pressure Provider Name and Address Organization Details Last Updated DateTime 4 98319.7 9 g 19.4 kg/m2 157.48 cm 97.6 [degF] 82 /min 99 % 99 % 16 /min 147 mm[Hg] 83 mm[Hg] Merlene Farrar MA [facility] 4 16:17:09 Date Recorded Body height Body mass index (BMI) Body weight Systolic blood pressure Diastolic blood pressure Provider Name and Address Organization Details Last Updated DateTime 02/05/2014 157.48 cm 21.4 kg/m2 15285.30 729 g 142 mm[Hg] 80 mm[Hg] Dayna Frey [facility] 4 15:16:14 Date Recorded Body height Body mass index (BMI) Body weight Systolic blood pressure Diastolic blood pressure Provider Name and Address Organization Details Last Updated DateTime 02/11/2014 157.48 cm 21.4 kg/m2 04982.30 729 g 128 mm[Hg] 80 mm[Hg] Nataliia Araya [facility] 4 16:34:53 Social History Question Answer Notes LastModified by Organizat ion Details LastModified Time Tobacco Smoking Status Current Every Day Smoker Dayna Frey [facility] 02/05/2014 15:16:14 What Was The Date Of Your Most Recent Tobacco Screening? 05/15/2023 Information not available 05/15/2023 How Many Children Do You Have? 3 [email or web address] Information not available 02/05/2014 What Is Your Relationship Status? [email or web address] Information not available 02/05/2014 Are You Sexually Active? Yes [email or web address] Information not available 02/05/2014 At What Age Did You Start Smoking Tobacco? 14 Information not available 02/05/2014 How Much Tobacco Do You Smoke? 1 PPD Information not available 04/17/2023 Has Tobacco Cessation Counseling Been Provided? No Information not available 04/17/2023 Sex: Female Functional Status None recorded. Mental Status None recorded. Family History Relationship Description Onset Age of this Age Resolved Age Notes LastModified by Organization Details LastModified Time Mother Heart disease [email or web address] Not available 2013 15:16:14 Medical History Condition [...] SNOMED-CT Code Diagnosis ICD10 Code Diagnosis Note [id number] MD Dedrick Duran ([place] [address]) [address] [facility] [address] [facility] [place] [address] 02/05/2014 14:55:01 02/06/2014 09:44:51 Screening for cancer [id number] MD Dedrick Duran ([facility]) [address] [facility] [place] [address] 02/11/2014 16:19:32 02/11/2014 16:57:22 Infection by Trichomonas [id number] MD Dedrick Sen 14 IM [address] [facility] [address] [place], [place] [address], [place] [address] 04/17/2023 15:41:55 04/24/2023 07:54:20 Adult health examination 810059924 Z00.00 Patient presents today to establish care. Wheezing 58033266 R06.2 Wheezing present on exam. States that she has wheezing daily and uses his albuterol inhaler frequently throughout the day. In light of recent CT chest that shows possible mass to lung, will refer to pulmonolog y as well as to oncology. Will also start Spiriva inhaler for maintenanc e use. Screening mammography 24 983030 Z12.31 Patient has never had a mammogram, will refer. Screening for malignant neoplasm of colon 158744528 Z12.11 Patient has never had a colonoscop y, will refer. CT of chest abnormal 819 8570021 3457815 R93.89 Radiologic findings concerning for malignancy . [...] possible malignancy . Benign ess ential hypertension 8392324 I10 [id number] MD Dedrick Sen 14 IM 4 [facility] [address] [place] [address] 05/15/2023 16:06:13 05/17/2023 08:53:58 CT of chest abnormal [id number] 4709731 R93.89 Radiologic findings concerning for malignancy . [...] Singh Member ID Guarantor Name 02/05/2014 1 [facility] (MEDICAID HMO) Yadira Livezey [id number] Yadira Livezey 02/11/2014 1 [facility] (MEDICAID HMO) Yadira Livezey [id number] Yadira Livezey 04/17/2023 1 *SELF PAY* Orozco [...] kids, 2 still livingSafe: YesWork: Works at [employer]: Eats [employer] daily, also eats fruit and veggiesExercise: Walks [...] Medicaid. JADON WALSH MD Attn: Accounting,[address] [place], [address], [facility] 04/21/2023 16:33:26 05/15/2023 text/html Yadira [...] appointment. Shahram Okeefe MD Attn: Accounting,[address] [facility], [place], [address], [facility] - [facility] 05/16/2023 18:19:20 OBGyn Episode No OBEpisode recorded.
--- OUTSIDE RECORDS SUMMARY | 2024-08-11 13:11 | XMS_ITS | Clinical Summary ---
Author Organization [facility] Address [address] [place] [address] Care Team Providers Care R Developer Name Role Phone Unknown, Provider Primary Care Provider Unavaila ble Source Comments [facility],non-[facility] Affiliates and Associated Physician Practices is amultiple site organization consisting of ambulatory clinics and hospital sitesin [place], [place], [place] and [place]. This disclosure is being madepursuant to the Care Everywhere program and may not contain all information available regarding this patient. Last updated 17.[facility] [place] Social History Tobacco Use Types Packs/Day Years [...] age to complete this topic Care Teams R Developer Relationship Specialty Start Date End Date Unknown, Provider PCP - General 12/31/15
[2024-08-11 13:18] VITALS: BP 155/66; PULSE 99; RESP 16; TEMP 36.6; O2SAT 99
[2024-08-11 14:08] VITALS: BP 143/75; PULSE 66; RESP 20; O2SAT 99
[2024-08-11 14:36] LABS: Basophils Absolute Auto 0.1 K/mm3 (0.0-0.1); Basophils Percent Auto 0.7 % (0.2-1.2); Eosinophils Absolute Auto 0.1 K/mm3 (0-0.3); Eosinophils Percent Auto 1.2 % (0-4.4); Hematocrit 38.6 % (37.0-47.0); Hemoglobin 12.6 g/dL (12.0-15.0); Immature Granulocyte Absolute 0.04 K/mm3 (0.00-0.031); Immature Granulocyte Percent A 0.6 % (0-0.5); Lymphocytes Absolute Auto 0.79 K/mm3 (0.9-3.2); Lymphocytes Percent Auto 11.4 % (18.3-44.2); Mean Corpuscular HGB Conc 32.6 g/dl (32-36); Mean Corpuscular Hemoglobin 31.8 pg (26-34); Mean Corpuscular Volume 97.5 fl (80-100); Mean Platelet Volume 8.5 fl (7.4-10.4); Monocytes Absolute Auto 0.8 K/mm3 (0.1-0.6); Monocytes Percent Auto 11.8 % (2.6-8.5); Neutrophils Absolute Auto 5.2 K/mm3 (1.3-6.7); Neutrophils Percent Auto 74.3 % (45.5-73.1); Platelet Count Result 350 k/mm3 (150-375); Red Blood Count 3.96 M/mm3 (4.2-5.4); Red Cell Distribution Width 12.3 % (11.5-14.5); White Blood Count 6.9 K/mm3 (4.5-10.0)
[2024-08-11 14:45] LABS: Alanine Aminotransferase 59 U/L (6-35); Albumin Level 3.9 g/dL (3.5-5.1); Alkaline Phosphatase 103 U/L (38-126); Anion Gap 9 mmol/L (4-12); Aspartate Amino Transferase 52 U/L (14-36); Bilirubin,Total 0.5 mg/dL (0.2-1.3); Blood Urea Nitrogen 7 mg/dL (7-17); Calcium 9.2 mg/dL (8.4-10.2); Carbon Dioxide 28 mmol/L (22-30); Chloride 94 mmol/L (98-107); Estimated CRCL calculation 71 ml/min; Estimated Glomerular Filt Rate > 60; Glucose 97 mg/dL (65-110); Lipase 37 U/L (23-300); Potassium 3.7 mmol/L (3.4-5.0); Sodium 131 mmol/L (137-145); Total Protein 7.3 g/dL (6.3-8.2)
--- OUTSIDE RECORDS SUMMARY | 2024-08-11 14:45 | XMS_ITS | Referral Summary ---
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 Gender Identity Not on file Sexual Orientation Not on file Last Filed Vital Signs Vital Sign Reading Time Taken Comments Blood Pressure 130/68 03/02/2023 5:02 PM HAND WORKER Pulse 96 03/02/2023 5:02 PM HAND WORKER Temperature 36.7 C (98.1 F) 03/02/2023 12:46 PM HAND WORKER Respiratory Rate 18 03/02/2023 5:02 PM HAND WORKER Oxygen Saturation 91% 03/02/2023 5:02 PM HAND WORKER Inhaled Oxygen Concentration - - Weight 45.4 kg (100 lb) 03/02/2023 12:46 PM HAND WORKER Height 157.5 cm (5' 2) 03/02/2023 12:46 PM HAND WORKER Body Mass Index 18.29 03/02/2023 12:46 PM HAND WORKER Plan of Treatment Not on file Insurance [facility] Advance Directives For more information, please contact: [phone] * Full Code (Latest Code Status on File) Date Activated Date Inactivated Comments 06/04/2017 1:03 PM 06/06/2017 4:34 PM Care Teams Asset Protection Detective Relationship Specialty Start Date End Date No, Physician PCP - General 06/06/17
--- OUTSIDE RECORDS SUMMARY | 2024-08-11 14:45 | XMS_ITS | Clinical Summary ---
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 Gender Identity Not on file Sexual Orientation Not on file Obstetrics History Last Filed Vital Signs Vital Sign Reading Time Taken Comments Blood Pressure 130/68 03/02/2023 5:02 PM PARALEGAL INSTRUCTOR Pulse 96 03/02/2023 5:02 PM PARALEGAL INSTRUCTOR Temperature 36.7 C (98.1 F) 03/02/2023 12:46 PM PARALEGAL INSTRUCTOR Respiratory Rate 18 03/02/2023 5:02 PM PARALEGAL INSTRUCTOR Oxygen Saturation 91% 03/02/2023 5:02 PM PARALEGAL INSTRUCTOR Inhaled Oxygen Concentration - - Weight 45.4 kg (100 lb) 03/02/2023 12:46 PM PARALEGAL INSTRUCTOR Height 157.5 cm (5' 2) 03/02/2023 12:46 PM PARALEGAL INSTRUCTOR Body Mass Index 18.29 03/02/2023 12:46 PM PARALEGAL INSTRUCTOR Plan of Treatment Health Maintenance Due Date Last Done Comments Breast Cancer Screening-Mammogram 1963 Colon Cancer Screening-Colonoscopy 1963 Depression Screening 1963 Hepatitis C Screening 1963 DTaP/Tdap/Td Vaccine (1 - Tdap) 1974 Hepatitis B Screening 1981 Regular Well Visit/Exam 18-64 1981 Pneumococcal vaccine <65 (1 of 2 - PCV) 1982 Zoster Vaccine (1 of 2) 2013 Influenza Vaccine (Season Ended) [address] [facility] Advance Directives For more information, please contact: [phone] * Full Code (Latest Code Status on File) Date Activated Date Inactivated Comments 06/04/2017 1:03 PM 06/06/2017 4:34 PM Care Teams Head Charger Relationship Specialty Start Date End Date No, Physician PCP - General 06/06/17
--- OUTSIDE RECORDS SUMMARY | 2024-08-11 14:45 | XMS_ITS | Clinical Summary ---
Author Organization [facility] Address [address] [place] [address] Care Team Providers Care Dealmaker Name Role Phone Unknown, Provider Primary Care Provider Unavaila ble Source Comments [facility],non-[facility] Affiliates and Associated Physician Practices is amultiple site organization consisting of ambulatory clinics and hospital sitesin [place], [place], [place] and [place]. This disclosure is being madepursuant to the Care Everywhere program and may not contain all information available regarding this patient. Last updated 17.[facility] [employer] Social History Tobacco Use Types Packs/Day Years [...] age to complete this topic Care Teams Dealmaker Relationship Specialty Start Date End Date Unknown, Provider PCP - General 12/31/15
--- OUTSIDE RECORDS SUMMARY | 2024-08-11 14:45 | XMS_ITS | Clinical Summary ---
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
--- NOTE | 2024-08-11 14:46 | ED_ITS ---
HPI - Abdominal Pain General Chief Complaint: Abdominal Pain Stated Complaint: diarrhea since Monday Time Seen by Provider: 08/11/24 14:38 Source: patient Mode of arrival: ambulatory Limitations: no limitations History of Present Illness HPI narrative: 59 YEARS OLD WHITE FEMALE CAME TO THE ED BY PRIVATE CAR COMPLAINING OF ABDOMINAL PAIN STARTED 6 DAYS AGO, INTERMITTENT, LOWER ABDOMEN, CRAMPS, NO RADIATION, NO NAUSEA OR VOMITING ASSOCIATED WITH EXPLOSIVE DIARRHEA WHICH GRADUALLY GOT BETTER. HISTORY OF HYPERTENSION ASTHMA TOBACCO DEPENDENT. SHE DENIES ANY FEVER OR CHILLS. Related Data Home Medications ?Medication ?Instructions ?Recorded ?Confirmed ?Last Taken ?Type albuterol sulfate 90 mcg/actuation inhalation 08/07/24 Unknown History aerosol inhaler losartan 25 mg tablet mg 08/07/24 Unknown History Allergies Allergy/AdvReac Type Severity Reaction Status Date / Time morphine Allergy Rash Verified 08/11/24 15:43 Review of Systems 2 Review of Systems: All systems reviewed & are unremarkable except as noted in HPI and below PMFSH Past Medical History Medical History Tobacco abuse Alcohol abuse Surgical History Surgical History History of hysterectomy Family History Family History Mother Heart disease Social History Social History Smoking packs per day: 1.5 Smoking cigarettes per day: 30.0 Smoking status: Current every day smoker Alcohol intake: current Alcohol use details: Several beers daily Substance use: never Living arrangements: alone Occupation/Education: occupation Additional occupation/education comments: [employer] Gender identity (if verbalized by the patient): Female Sexual Orientation (if Verbalized by the Patient): Straight or Heterosexual Exam 2 Narrative: GENERAL APPEARANCE: WELL-DEVELOPED, WELL-NOURISHED SKIN: NORMAL COLOR HEAD: NORMOCEPHALIC, NONTRAUMATIC EYES: CLEAR CONJUNCTIVA ENT: OROPHARYNX NORMAL, EARS NORMAL, NOSE NORMAL NECK: SUPPLE, NONTENDER CHEST AND RESPIRATORY: AIRWAY PATENT, NO RESPIRATORY DISTRESS, NO ACCESSORY MUSCLE USE HEART: REGULAR RATE/RHYTHM ABDOMEN: SOFT, DIFFUSE TENDERNESS LOWER ABDOMEN, SLIGHTLY DISTENDED, NO ORGANOMEGALY, QUIET BOWEL SOUNDS VASCULAR: NORMAL PERIPHERAL PULSES, NORMAL CAPILLARY REFILL. MUSCULOSKELETAL: NORMAL RANGE OF MOTION, NONTENDER BACK NEUROLOGIC: ALERT AND ORIENTED ?3, YACHT BUILDER IS NORMAL TESTED, NO GROSS MOTOR DEFICIT Course Consultations Consultation #1: DR LOPEZ REQUEST GALLBLADDER ULTRASOUND, MRCP IN THE MORNING AND ABDOMINAL MRI Date: 08/11/24 Vital Signs Vital signs: Vital Signs Temperature 36.6 C 08/11/24 13:18 Pulse Rate 99 08/11/24 13:18 Respiratory Rate 16 08/11/24 13:18 Blood Pressure 155/66 H 08/11/24 13:18 Pulse Oximetry 99 08/11/24 13:18 Temperature 36.6 C 08/11/24 13:18 Pulse Rate 96 08/11/24 16:45 Respiratory Rate 20 08/11/24 16:45 Blood Pressure 136/69 08/11/24 16:45 Pulse Oximetry 96 08/11/24 16:45 MDM - Abdominal Pain MDM Narrative Medical decision making narrative: PATIENT PRESENTS WITH ABDOMINAL PAIN AND DIARRHEA VITAL SIGNS SHOWING BLOOD PRESSURE 155/66 OTHERWISE WITHIN NORMAL LIMIT PHYSICAL EXAMINATION SHOWING DIFFUSE TENDERNESS LOWER ABDOMEN DIFFERENTIAL DIAGNOSIS INCLUDE URINARY TRACT INFECTION, COLITIS, DIVERTICULITIS, INTRA-ABDOMINAL TUMOR, APPENDICITIS, CHOLECYSTITIS. BLOOD WORKUP TODAY INCLUDES CBC, CMP, LIPASE SHOWED SODIUM 131, AST 52, ALT 59, URINALYSIS SHOWED 1+ LEUKOCYTE ESTRACE CT ABDOMEN AND PELVIS WITH IV CONTRAST SHOWED POSSIBLE SOFT TISSUE MASS AT THE SPHINCTER OF ODDI LEFT ADNEXAL MASS. RECOMMEND PELVIC MRI AND GYNECOLOGY/ONCOLOGY CONSULTATION GALLBLADDER ULTRASOUND SHOWED COMMON BILE DUCT AND PANCREATIC DUCTAL DILATATION, LIKELY GALLSTONES, SMALL VOLUME ASCITES PELVIC ULTRASOUND SHOWED LARGE COMPLEX LEFT ADNEXAL MASS RECOMMENDATION FOR PELVIC MRI AND A GYNECOLOGY /ONCOLOGY CONSULTATION PATIENT DECLINED HOSPITALIZATION TODAY BECAUSE NOBODY IS GOING TO TAKE CARE OF HER ANIMALS AND SHE IS PLANNED TO COME TOMORROW. I DECLARE THAT I HAVE PERSONALLY EXPLAINED TO THE PATIENT THE RISKS AND CONSEQUENCES INVOLVED IN LEAVING THIS FACILITY AT THIS TIME. THE BENEFITS OF CONTINUED TREATMENT AND/OR HOSPITALIZATION. AND THE ALTERNATIVES. IF ANY. TO CONTINUED TREATMENT AND/OR HOSPITALIZATION. IF APPLICABLE.I HAVE NOT IDENTIFIED ANY PSYCHOSIS, DRUGS, MENTAL ILLNESS, OR MEDICAL ILLNESS THAT ALTERS DECISION- MAKING CAPACITY (REASONING ABILITIES ). Differential Diagnosis Differential diagnosis: Likely other ( ABOVE) Medical Records Attestation: I reviewed the patient's medical records. Lab Data Attestation: I reviewed the patient's lab results. 08/11/24 14:05 08/11/24 14:05 Labs: Lab Results 06/08/25 Range/Units 14:05 WBC 6.9 (4.5-10.0) K/mm3 RBC 3.96 L (4.2-5.4) M/mm3 Hgb 12.6 (12.0-15.0) g/dL Hct 38.6 (37.0-47.0) % MCV 97.5 (80-100) fl MCH 31.8 (26-34) pg MCHC 32.6 (32-36) g/dl RDW 12.3 (11.5-14.5) % Plt Count 350 (150-375) k/mm3 MPV 8.5 (7.4-10.4) fl Immature Gran % (Auto) 0.6 H (0-0.5) % Neut % (Auto) 74.3 H (45.5-73.1) % Lymph % (Auto) 11.4 L (18.3-44.2) % Bartholomew % (Auto) 11.8 H (2.6-8.5) % Eos % (Auto) 1.2 (0-4.4) % Baso % (Auto) 0.7 (0.2-1.2) % Lymph # (Auto) 0.79 L (0.9-3.2) K/mm3 Bartholomew # (Auto) 0.8 H (0.1-0.6) K/mm3 Eos # (Auto) 0.1 (0-0.3) K/mm3 Baso # (Auto) 0.1 (0.0-0.1) K/mm3 Abs Immat Gran (auto) 0.04 H (0.00-0.031) K/mm3 Absolute Neuts (auto) 5.2 (1.3-6.7) K/mm3 Absolute Nucleated RBC 0.000 (0.0-0.012) K/mm3 Nucleated RBC % 0.0 (0.0-0.2) % Sodium 131 L (137-145) mmol/L Potassium 3.7 (3.4-5.0) mmol/L Chloride 94 L (98-107) mmol/L Carbon Dioxide 28 (22-30) mmol/L Anion Gap 9 (4-12) mmol/L BUN 7 (7-17) mg/dL Creatinine 0.49 L (0.7-1.0) mg/dL Estim Creat Clear Calc 71 ml/min Estimated GFR > 60 (59 - ) Glucose 97 (65-110) mg/dL Calcium 9.2 (8.4-10.2) mg/dL Total Bilirubin 0.5 (0.2-1.3) mg/dL AST 52 H (14-36) U/L ALT 59 H (6-35) U/L Alkaline Phosphatase 103 (38-126) U/L Total Protein 7.3 (6.3-8.2) g/dL Albumin 3.9 (3.5-5.1) g/dL Lipase 37 (23-300) U/L Urine Color Yellow (Yellow) Urine Appearance Clear (Clear) Urine pH 6.0 (5.0-9.0) Ur Specific [place] 1.015 (1.001-1.035) Urine Protein Trace (Negative) mg/dL Urine Glucose (UA) Negative (Negative) mg/dL Urine Ketones Negative (Negative) mg/dL Ur Blood (Man) Negative (Negative) Urine Nitrate Negative (Negative) Urine Bilirubin Negative (Negative) Urine Urobilinogen 0.2 (<2.0) mg/dL Add Ur Microanalysis Reviewed Leukocyte Esterase Rfl 1+ H (Negative) DIANE/UL Urine RBC 0-2 (0-2) /hpf Urine WBC 0-5 (0-3) /hpf Ur Squamous Epith Cells Occasional (Few) /hpf Urine Bacteria None seen /hpf Urine Casts 0-2 Imaging Data Radiologist's impression: ITS Impressions Abdomen/Pelvis CT 08/11/24 15:35 IMPRESSION: Mild esophagitis/gastritis. 8 mm common bile duct. Possible soft tissue mass at the sphincter of Oddi. Correlate with biliary labs. Recommend GI consultation for possible ERCP. Large left adnexal mass measuring up to 15.9 cm with cystic and solid components. Recommend pelvic MRI and gynecology or gynecology/oncology consultation. Trace pelvic ascites. Abdomen Ultrasound 08/11/24 18:22 IMPRESSION: Common bile duct and mild pancreatic duct dilation. Nonspecific gallbladder wall thickening. Likely gallstone, adherent to the gallbladder wall. Small volume ascites. Pelvis Ultrasound 08/11/24 18:26 IMPRESSION: Large complex left adnexal mass. Prior recommendations for pelvic MRI and gynecology or gynecology/oncology consultation are unchanged. Critical Care Time Critical Care Time Critical Care Time: Yes Total Critical Care Time: 30 Discharge Plan Discharge Clinical Impression: Cholelithiasis, Adnexal mass Patient Disposition: Left Against Medical Advice Condition: Critical Patient Language: Danish Prescriptions: No Action losartan 25 mg tablet albuterol sulfate 90 mcg/actuation HFA aerosol inhaler INHALATION Follow-up/Referrals: PHYSICIAN,CREDIT CARD ANALYST [Primary Care Provider] -
[2024-08-11 14:47] LABS: Add Urine Microscopic? YES; Appearance Urine Clear (Clear); Bacteria Urine None Seen /hpf; Bilirubin Urine Negative (Negative); Blood Urine Negative (Negative); Color Urine Yellow (Yellow); Glucose Urine UA Negative (Negative); Ketones Urine Negative (Negative); Leukocyte Esterase Ur 1+ LEU/UL (Negative); Need Manual Microscopic Reviewed; Nitrate Urine Negative (Negative); Non Pathogenic Casts 0-2; Protein Urine Trace mg/dL (Negative); RBC Urine 0-2 /hpf (0-2); Specific Grav Ur 1.015 (1.001-1.035); Squamous Epithelial Cell Urine Occasional /hpf (Few); Urobilinogen Urine 0.2 mg/dL (<2.0); WBC Urine 0-5 /hpf (0-3)
[2024-08-11] MEDS: ONDANSETRON INJ 4 MG/2 ML VIAL IV PUSH (15:31)
[2024-08-11] MEDS: MORPHINE SULFATE (*CRX) 4 MG/ML INJ IV PUSH (15:31)
[2024-08-11] MEDS: SODIUM CHLORIDE 0.9% IV 1,000 ML 999 ML IV CONT (15:32)
[2024-08-11 15:37] VITALS: BP 142/72; PULSE 100; RESP 20; O2SAT 100
--- NOTE | 2024-08-11 15:42 | PC.NURSE ---
Pt R hand became red and irritated after IV administration of morphine. MD made aware. Pt in NAD.
[2024-08-11 16:45] VITALS: BP 136/69; PULSE 96; RESP 20; O2SAT 96
--- NOTE | 2024-08-11 19:18 | PC.NURSE ---
Received report from ADORE Yo for cont. of care. Pt lying on stretcher respirations even and unlabored. Pt c/o R elbow pain, refer to MAR for medication adminstration.
--- NOTE | 2024-08-11 19:21 | PC.NURSE ---
Received report from ADORE Yo for cont. of care. Pt sitting on edge of bed c/o 05/13 abdominal pain non-radiating. Pt AOx4, provided with crackers and water.
--- NOTE | 2024-08-11 20:01 | PM.IMHP ---
H&P: HPI History of Present Illness Date/Time: 08/11/24 20:01 Review of Systems Review of Systems: All systems reviewed & are unremarkable except as noted in HPI and below PMFSH Past Medical History Medical History Tobacco abuse Alcohol abuse Surgical History Surgical History History of hysterectomy Family History Family History Mother Heart disease Social History Social History Smoking packs per day: 1.5 Smoking cigarettes per day: 30.0 Smoking status: Current every day smoker Alcohol intake: current Alcohol use details: Several beers daily Substance use: never Living arrangements: alone Occupation/Education: occupation Additional occupation/education comments: [employer] Gender identity (if verbalized by the patient): Female Sexual Orientation (if Verbalized by the Patient): Straight or Heterosexual Meds Home Medications and Allergies Home Medications ?Medication ?Instructions ?Recorded ?Confirmed ?Type albuterol sulfate 90 mcg/actuation inhalation 08/07/24 History aerosol inhaler losartan 25 mg tablet mg 08/07/24 History Allergies Allergy/AdvReac Type Severity Reaction Status Date / Time morphine Allergy Rash Verified 08/11/24 15:43 Vital Signs Vital Signs - 24 hr 08/11/24 13:18 08/11/24 14:08 08/11/24 15:37 Temperature 36.6 C Pulse Rate 99 66 100 Respiratory Rate 16 20 20 Blood Pressure 155/66 H 143/75 H 142/72 H Pulse Oximetry 99 99 100 08/11/24 16:45 Temperature Pulse Rate 96 Respiratory Rate 20 Blood Pressure 136/69 Pulse Oximetry 96 Exam Narrative: GENERAL APPEARANCE: WELL-DEVELOPED, WELL-NOURISHED SKIN: NORMAL COLOR HEAD: NORMOCEPHALIC, NONTRAUMATIC EYES: CLEAR CONJUNCTIVA ENT: OROPHARYNX NORMAL, EARS NORMAL, NOSE NORMAL NECK: SUPPLE, NONTENDER CHEST AND RESPIRATORY: AIRWAY PATENT, NO RESPIRATORY DISTRESS, NO ACCESSORY MUSCLE USE HEART: REGULAR RATE/RHYTHM ABDOMEN: SOFT, DIFFUSE TENDERNESS LOWER ABDOMEN, SLIGHTLY DISTENDED, NO ORGANOMEGALY, QUIET BOWEL SOUNDS VASCULAR: NORMAL PERIPHERAL PULSES, NORMAL CAPILLARY REFILL. MUSCULOSKELETAL: NORMAL RANGE OF MOTION, NONTENDER BACK NEUROLOGIC: ALERT AND ORIENTED ?3, HEARING THERAPIST IS NORMAL TESTED, NO GROSS MOTOR DEFICIT H&P: Results Labs Labs: Short CBC 08/11/24 Range/Units 14:05 WBC 6.9 (4.5-10.0) K/mm3 Hgb 12.6 (12.0-15.0) g/dL Hct 38.6 (37.0-47.0) % Plt Count 350 (150-375) k/mm3 BMP 08/11/24 14:05 Sodium 131 L Potassium 3.7 Chloride 94 L Carbon Dioxide 28 BUN 7 Creatinine 0.49 L Glucose 97 Calcium 9.2 Liver Function 08/11/24 Range/Units 14:05 Total Bilirubin 0.5 (0.2-1.3) mg/dL AST 52 H (14-36) U/L ALT 59 H (6-35) U/L Alkaline Phosphatase 103 (38-126) U/L Albumin 3.9 (3.5-5.1) g/dL Urine 08/11/24 Range/Units 14:05 Urine Color Yellow (Yellow) Urine Appearance Clear (Clear) Urine pH 6.0 (5.0-9.0) Ur Specific [place] 1.015 (1.001-1.035) Urine Protein Trace (Negative) mg/dL Urine Glucose (UA) Negative (Negative) mg/dL Pulse Oximetry SpO2 results: 96-99% on room air Attestation: I personally reviewed and interpreted this pulse oximetry as follows: Interpretation: No need for supplemental oxygenation at this time Imaging US - abdomen: Radiologist's impression: EXAMINATION: US abdomen limited DATE: 08/11/2024 18:05 INDICATION: GALLBLADDER TECHNIQUE: Multiple grayscale and Doppler ultrasound images of limited portions of the abdomen were obtained. COMPARISON: CT abdomen pelvis, same date. FINDINGS: The main pancreatic duct is dilated to 3 mm. The liver is normal with normal echogenicity and echotexture. No surface nodularity. Normal hepatopetal flow in the main portal vein. Mild gallbladder wall thickening to 3 mm. 5 mm echogenic nonmobile bile focus adherent to the gallbladder wall, with twinkle artifact. No pericholecystic fluid The common bile duct measures 9 mm. There was no sonographic Davis sign. Small volume perihepatic fluid. IMPRESSION: Common bile duct and mild pancreatic duct dilation. Nonspecific gallbladder wall thickening. Likely gallstone, adherent to the gallbladder wall. Small volume ascites. Reviewed, dictated and finalized at location K. CT scan - abdomen: Radiologist's impression: EXAMINATION: CT abdomen pelvis w con DATE: 08/11/2024 15:27 INDICATION: UPPER ABDOMINAL PAIN TECHNIQUE: Computed tomography (CT) of the abdomen and pelvis was performed with 100 mL Omnipaque-350 intravenous contrast. Automated exposure control and iterative reconstruction technique were employed. The dose-length product was 177.20 mGy-cm. COMPARISON: None. FINDINGS: Lower thorax: Unremarkable Liver: Normal. Biliary/Gallbladder: Gallbladder is normal. The common bile duct measures 8 mm, without inflammatory change. Prominent soft tissue density at the sphincter of Oddi, measuring 13 mm. No obstructing stone. No intrahepatic duct dilation Pancreas: No mass or duct dilation. Spleen: Normal. Adrenals:No mass. Kidneys: No suspicious mass, obstructing stone, or hydronephrosis. GI tract: Mild distal esophageal and gastric wall edema. No small or large bowel dilation. Normal appendix. Mesentery/Peritoneum: No mass or free air. Retroperitoneum: No mass. Atherosclerotic calcifications of intra-abdominal arterial vessels. Pelvis: Large left adnexal mass with cystic and solid components, measuring 12.3 AP x 19.0 transverse x 15.9 craniocaudad. The solid component is partially calcified, measuring 4.9 x 6.0 cm, and may represent an enlarged left ovary. Right ovary measuring 4.3 x 2.4 cm, associated with a simple cyst. Incompletely distended urinary bladder. Small volume fluid in the deep pelvis. The uterus is surgically absent. Soft Tissues: Soft tissues and body wall unremarkable. Bones: No acute osseous finding. IMPRESSION: Mild esophagitis/gastritis. 8 mm common bile duct. Possible soft tissue mass at the sphincter of Oddi. Correlate with biliary labs. Recommend GI consultation for possible ERCP. Large left adnexal mass measuring up to 15.9 cm with cystic and solid components. Recommend pelvic MRI and gynecology or gynecology/oncology consultation. Trace pelvic ascites. Reviewed, dictated and finalized at location K. US Pelvis: Radiologist's impression: EXAMINATION: US pelvic complete DATE: 08/11/2024 18:10 INDICATION: LEFT ADNEXAL MASS TECHNIQUE: Multiple transabdominal and endovaginal sonographic images of the pelvis were obtained. COMPARISON: None. FINDINGS: Uterus: Surgically absent. Right Ovary: Not visualized. Left Ovary: Left ovary is not discretely visualized. Large multilobulated multiseptated left adnexal mass. Irregular areas of wall thickening and nodularity. Nonvascular internal echogenicity (CS 1). Mass measures at least 14.9 cm it is difficult to completely include within the transducer [id number]. ORADS 4. There is no free fluid in the pelvis. IMPRESSION: Large complex left adnexal mass. Prior recommendations for pelvic MRI and gynecology or gynecology/oncology consultation are unchanged. Reviewed, dictated and finalized at location K. Assessment and Plan Assessment and plan (1) Dilated bile duct: Code(s): K83.8 - Other specified diseases of biliary tract Status: Acute Assessment and Plan: -Dr. Woodard with GI consulted from ER -MRCP ordered as requested -Prominent soft tissue density at the sphincter of Oddi measuring 13 mm -Bile duct dilated to 8mm on CT -Pancreatic duct also found dilated to 3 mm on Ultrasound (2) Cholelithiasis: Code(s): K80.20 - Calculus of gallbladder without cholecystitis without obstruction Status: Acute Assessment and Plan: -Stone noted adherent to gallbladder wall on CT and Ultrasound -GI consulted for possible ERCP, MRCP ordered for 08/12/24 (3) Adnexal mass: Code(s): N94.89 - Other specified conditions associated with female genital organs and menstrual cycle Status: Acute Assessment and Plan: -Complex large left adnexal mass with cystic and solid components noted -MRI of Pelvis ordered and CONSULTANT DIETITIAN consulted by ER -Ultrasound shows same findings with same recommendations of MRI and CONSULTANT DIETITIAN consult -S/P Hysterectomy in the past (4) Tobacco abuse: Code(s): Z72.0 - Tobacco use Status: Acute Assessment and Plan: -Current smoker, nicotine patch will be available (5) Hyponatremia: Code(s): E87.1 - Hypo-osmolality and hyponatremia Status: Acute Assessment and Plan: -Sodium 131 on arrival, likely multifactorial including acute illness, diarrhea/dehydration, history alcohol abuse -No prior labs on file -Will check AM labs (6) Diarrhea: Code(s): R19.7 - Diarrhea, unspecified Status: Acute Assessment and Plan: -Abdominal pain and diarrhea for past 6 days, improving now Quality VTE Prophylaxis VTE prophylaxis: mechanical ordered If No VTE Prophylaxis Answer both mechanical and pharmacologic: Reason no pharmacologic proph: medical contraindication (Two proceduralists consulted--GI and CONSULTANT DIETITIAN) active bleeding/bleeding risk Hospitalist MIPS Advance Care Plan I have confirmed that the patient's Advanced Care Plan is present, code status is documented, or surrogate decision maker is listed in patient medical record.: Yes Medication Reconciliation I have utilized all available resources to obtain, update and review the patients current medications (includes all prescriptions, OTC, herbals, cannabis, and nutritional supplements).: Yes
--- NOTE | 2024-08-11 21:13 | P.PNCROSS_ITS ---
Event Note Event Note Event Note: I did not see patient and she did not get moved to the floor. Patient signed o ut AMA in ER.
[2024-08-11 21:20] VITALS: BP 128/83; PULSE 89; RESP 16; O2SAT 96
== END 2024-08-11 20:22 | disposition left against medical advice (07) ==
PROVIDERS: Emergency Medicine; Emergency Provider Emergency Medicine
DX: K80.20 Calculus of gallbladder without cholecystitis without obstruction (principal); R19.09 Other intra-abdominal and pelvic swelling, mass and lump; F17.210 Nicotine dependence, cigarettes, uncomplicated; F10.10 Alcohol abuse, uncomplicated
CPT/HCPCS: 36415; 74177; 76705; 76856; 80053; 81001; 83690; 85025; 87086; 96361; 96374; 96375; 99284; J2270; J2405; J7030; Q9967

== ENCOUNTER 2024-08-12 12:38 | Inpatient (IN) | payer OTHER, SELFPAY ==
--- NOTE | ~2024-08-12 | MR_ITS ---
EXAMINATION: MR MRCP wo/w con/w 3D wo ind DATE: 08/13/2024 13:29 INDICATION: Common bile duct and pancreatic duct dilation. Mass at the sphincter. TECHNIQUE: Magnetic resonance imaging (MRI) of the abdomen was performed without and with 15 mL Multi delisa intravenous contrast. Sequences included coronal T2-weighted SS-FSE, coronal T2-weighted FS SS- FSE, coronal T2-weighted FS FIESTA, axial T2-weighted FS FIESTA, axial T2-weighted FIESTA, sagittal T 2-weighted SS-FSE, axial T1-weighted dual-echo FSPGR, axial T2-weighted SS-FSE, axial T1-weighted LAV A, axial T2-weighted STIR FSE. Thick-slab T2-weighted FRFSE-XL images were obtained for magnetic reso nance cholangiopancreatography (MRCP). Rotating maximum intensity projection 3-D reconstructions of t he volumetric data were created by the technologist. Postcontrast sequences included a time course of axial T1-weighted LAVA. COMPARISON: CT dated 08/11/2024 FINDINGS: ABDOMEN MRI: Size is normal. No pericardial or pleural effusion. Liver, gallbladder, spleen, bilateral adrenal gla nds and kidneys are normal. There is dilation of the main pancreatic duct which measures up to 4 mm a t the head of the pancreas tapering to 2 mm at the tail of the pancreas. 1.3 cm nodule centered at th e ampulla which projects into the lumen of the duodenum. No dilated bowel to suggest obstruction. Par tially visualized large complex cystic lesion extending into the lower abdomen from the pelvis. See s [facility] pelvic MRI report for further detail. Small amount of ascites in the abdomen. No pathological ly enlarged abdominal lymphadenopathy. Mild to moderate lumbar and lower thoracic spondylosis. No pat hologic marrow replacing process. ABDOMEN MRCP: There is dilation of the common hepatic duct to 10 mm tapering to 7 mm in the common bile duct with f urther tapering at the ampulla without evident intraluminal obstructing stone. No significant intrahe patic biliary ductal dilation. IMPRESSION: 1. Mild extra hepatic biliary ductal dilation and mild dilation of the main pancreatic duct suggestin g obstruction secondary to a 1.3 cm mass at the ampulla which projects into the lumen of the duodenum which is concerning for malignancy. Recommend endoscopy for further evaluation. 2. Incompletely visualized large complex cystic lesion arising from the pelvis and extending into the lower abdomen. See separate pelvic MRI for further detail. 3. Small amount of ascites. Reviewed, dictated and finalized at location A. IMPRESSION: 1. Mild extra hepatic biliary ductal dilation and mild dilation of the main hicks creatic duct suggesting obstruction secondary to a 1.3 cm mass at the ampulla w hich projects into the lumen of the duodenum which is concerning for malignancy . Recommend endoscopy for further evaluation. 2. Incompletely visualized large complex cystic lesion arising from the pelvis and extending into the lower abdomen. See separate pelvic MRI for further detai l. 3. Small amount of ascites.
--- NOTE | ~2024-08-12 | MR_ITS ---
EXAMINATION: MR pelvis wo/w con DATE: 08/14/2024 12:59 INDICATION: Complex adnexal mass TECHNIQUE: Magnetic resonance imaging (MRI) of the pelvis was performed without and with 10 mL ProHan ce intravenous contrast. Fullfield sequences of the pelvis included axial and coronal T2-weighted SS FSE, coronal 2D FIESTA, axial T1-weighted FSPGR, axial dual-echo T1-weighted FSPGR and axial T1 weigh gege LAVA. Postcontrast sequences included a time course axial T1-weighted LAVA with full-field of vi ew of the pelvis. COMPARISON: CT dated 08/11/2024 FINDINGS: The uterus is not identified and has likely been surgically resected. 19.4 x 12.3 x 13.1 cm complex m ultilobulated cystic mass occupying the majority pelvis extending into the left lower quadrant there are of varying signal intensities to the nonenhancing fluid components suggesting some loculated comp onents containing blood or proteinaceous fluid. There are multiple enhancing septations. There also p eripheral solid enhancing components to one of the loculations in the inferior left pelvis concerning for neoplasm. The gonadal veins extend along both the left and right sides of the cystic mass in the ovaries are unable to be definitively distinguished. The complex cystic lesion exerts mass effect up on the dome of the bladder. No pathologically enlarged pelvic or inguinal lymphadenopathy. Visualized portion of the bowels are unremarkable with no evident obstruction. Normal appendix. There appears b e red marrow reexpansion in the pelvis and visualized lumbar spine. No abnormally enhancing bone lesi ons identified. IMPRESSION: 1. 19.4 x 12.3 x 13.1 cm complex cystic mass with some enhancing soft tissue components filling the p sen and extending to the left lower quadrant. Location and appearance favors ovarian neoplasm inclu ding cystadenocarcinoma given the enhancing solid components unclear whether arising from the left or right. Reviewed, dictated and finalized at location A. IMPRESSION: 1. 19.4 x 12.3 x 13.1 cm complex cystic mass with some enhancing soft tissue co mponents filling the pelvis and extending to the left lower quadrant. Location and appearance favors ovarian neoplasm including cystadenocarcinoma given the e nhancing solid components unclear whether arising from the left or right.
[2024-08-12 12:44] VITALS: BP 145/77; PULSE 100; RESP 18; O2SAT 100; O2SAT 99
--- OUTSIDE RECORDS SUMMARY | 2024-08-12 13:46 | XMS_ITS | Clinical Summary ---
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
--- OUTSIDE RECORDS SUMMARY | 2024-08-12 13:46 | XMS_ITS | Referral Summary ---
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 Gender Identity Not on file Sexual Orientation Not on file Last Filed Vital Signs Vital Sign Reading Time Taken Comments Blood Pressure 130/68 03/02/2023 5:02 PM COMBINATION MACHINE TOOL SETTER Pulse 96 03/02/2023 5:02 PM COMBINATION MACHINE TOOL SETTER Temperature 36.7 C (98.1 F) 03/02/2023 12:46 PM COMBINATION MACHINE TOOL SETTER Respiratory Rate 18 03/02/2023 5:02 PM COMBINATION MACHINE TOOL SETTER Oxygen Saturation 91% 03/02/2023 5:02 PM COMBINATION MACHINE TOOL SETTER Inhaled Oxygen Concentration - - Weight 45.4 kg (100 lb) 03/02/2023 12:46 PM COMBINATION MACHINE TOOL SETTER Height 157.5 cm (5' 2) 03/02/2023 12:46 PM COMBINATION MACHINE TOOL SETTER Body Mass Index 18.29 03/02/2023 12:46 PM COMBINATION MACHINE TOOL SETTER Plan of Treatment Not on file Insurance [facility] Advance Directives For more information, please contact: [phone] * Full Code (Latest Code Status on File) Date Activated Date Inactivated Comments 06/04/2017 1:03 PM 06/06/2017 4:34 PM Care Teams Linux System Administrator Relationship Specialty Start Date End Date No, Physician PCP - General 06/06/17
--- OUTSIDE RECORDS SUMMARY | 2024-08-12 13:46 | XMS_ITS | Clinical Summary ---
Author Organization [facility] Address [address] [place] [address] Care Team Providers Care Filament Coil Winder Name Role Phone No, Physician Primary Care Provider [phone] Allergies No known active allergies Medications nicotine [...] on file Legal Sex Female 10:41 AM KAITARA TARAKA Gender Identity Not on file Sexual Orientation Not on file Obstetrics History Last Filed Vital Signs Vital Sign Reading Time Taken Comments Blood Pressure 130/68 03/02/2023 5:02 PM KAITARA TARAKA Pulse 96 03/02/2023 5:02 PM KAITARA TARAKA Temperature 36.7 C (98.1 F) 03/02/2023 12:46 PM KAITARA TARAKA Respiratory Rate 18 03/02/2023 5:02 PM KAITARA TARAKA Oxygen Saturation 91% 03/02/2023 5:02 PM KAITARA TARAKA Inhaled Oxygen Concentration - - Weight 45.4 kg (100 lb) 03/02/2023 12:46 PM KAITARA TARAKA Height 157.5 cm (5' 2) 03/02/2023 12:46 PM KAITARA TARAKA Body Mass Index 18.29 03/02/2023 12:46 PM KAITARA TARAKA Plan of Treatment Health Maintenance Due Date Last Done Comments Breast Cancer Screening-Mammogram 1963 Colon Cancer Screening-Colonoscopy 1963 Depression Screening 1963 Hepatitis C Screening 1963 DTaP/Tdap/Td Vaccine (1 - Tdap) 1974 Hepatitis B Screening 1981 Regular Well Visit/Exam 18-64 1981 Pneumococcal vaccine <65 (1 of 2 - PCV) 1982 Zoster Vaccine (1 of 2) 2013 Influenza Vaccine (Season Ended) 2024 Insurance [facility] Advance Directives For more information, please contact: [phone] * Full Code (Latest Code Status on File) Date Activated Date Inactivated Comments 06/04/2017 1:03 PM 06/06/2017 4:34 PM Care Teams Filament Coil Winder Relationship Specialty Start Date End Date No, Physician PCP - General 06/06/17
--- OUTSIDE RECORDS SUMMARY | 2024-08-12 13:46 | XMS_ITS | Clinical Summary ---
Author Organization [facility] Address [address] [place] [address] Care Team Providers Care Lmft Name Role Phone Unknown, Provider Primary Care Provider Unavaila ble Source Comments [facility],non-[facility] Affiliates and Associated Physician Practices is amultiple site organization consisting of ambulatory clinics and hospital sitesin [place], [place], [place] and [place]. This disclosure is being madepursuant to the Care Everywhere program and may not contain all information available regarding this patient. Last updated 17.[facility] [employer] Social History Tobacco Use Types Packs/Day Years [...] age to complete this topic Care Teams Lmft Relationship Specialty Start Date End Date Unknown, Provider PCP - General 12/31/15
--- NOTE | 2024-08-12 14:21 | ED_ITS ---
HPI - General Adult General Chief complaint: Unspecified Stated complaint: Left AMA yesterday, requesting MRI? Time Seen by Provider: 08/12/24 13:20 Source: patient, RN notes reviewed and old records reviewed Mode of arrival: ambulatory Limitations: no limitations History of Present Illness HPI narrative: THis is a 59 year old female who presents for evaluation of abdominal mass and abdominal cramping. She was evaluated in ED yesterday for several days of abdominal cramping and diarrhea. She had labs with CT abdomen and pelvis with pelvic ultrasound. There is concern for mass in spincter of oddi and an adenexal mass. GI was consulted and she was to be admitted for MRCP, abdominal mRI. She had to leave AMA due to person issues. She has come back today to get admitted for her tested. She denies pain at this time but she reports it is intermittent. She does not have a primary provider to assess her as outpatient. Related Data Home Medications ?Medication ?Instructions ?Recorded ?Confirmed ?Last Taken ?Type albuterol sulfate 90 mcg/actuation 2 puff inhalation Q6H PRN 08/07/24 08/12/24 08/11/24 History aerosol inhaler shortness of breath or wheezing losartan 25 mg tablet 25 mg PO DAILY 08/07/24 08/12/24 08/12/24 History Allergies Allergy/AdvReac Type Severity Reaction Status Date / Time morphine Allergy Rash Verified 08/12/24 17:36 adhesive tape AdvReac Intermediate Rash Verified 08/12/24 17:36 PMF Past Medical History Medical History Tobacco abuse Alcohol abuse Surgical History Surgical History History of hysterectomy Family History Family History Mother Heart disease Social History Social History Smoking packs per day: 1 Smoking cigarettes per day: 20.0 Years smoked: 40 Smoking pack-years: 40.00 Smoking status: Current every day smoker Tobacco type: cigarettes Alcohol intake: current Drinks per week: 14 Alcohol use details: Several beers daily Substance use: current Substance use type: marijuana Do You Feel Safe in your Home?: Yes Lack of Transportation: No Lack of Food: Never True Current Housing: I Have Housing Concerned About Future Housing: No Difficulty Paying Gas/Electric Bills: No Difficulty Paying for Meds: No Currently Unemployed: No Education: High School Diploma/GED Difficulty w/ Childcare or Family Care: No Living arrangements: alone Occupation/Education: occupation Additional occupation/education comments: [employer] Gender identity (if verbalized by the patient): Female Sexual Orientation (if Verbalized by the Patient): Straight or Heterosexual Spiritual care concerns: No Exam 2 Narrative: GENERAL: Well-appearing, well-nourished, and in no acute distress. HEAD: Normocephalic, atraumatic EYES: EOMI, conjunctiva clear without discharge THROAT:Mucous membranes moist, Oropharynx normal without erythema, exudate, peritonsillar swelling or fluctuance NECK: Supple, without lymphadenopathy or mass RESPIRATORY: No respiratory distress, Airway patent, Respirations non-labored, Clear to auscultation without rales, rhonchi or wheeze HEART: Regular rate and rhythm. No murmur heard. Normal peripheral pulses. ABDOMEN: Soft, nontender, nondistended, normal active bowel sounds. No masses. No rebound or guarding, No organomegaly. EXTREMITIES: No edema, normal strength with full range of motion. SKIN: Warm, dry, normal color without rash NEURO: Alert and oriented x3. CN 2-12 grossly intact. No focal deficits. PSYCH: Normal mood and affect. Course Consultations Consultation #1: I Spoke with [facility] with hospitalist service. He agrees to admit patient today . Date: 08/12/24 Time: 14:26 Vital Signs Vital signs: Vital Signs Pulse Rate 100 08/12/24 12:44 Respiratory Rate 18 08/12/24 12:44 Blood Pressure 145/77 H 08/12/24 12:44 Pulse Oximetry 99 08/12/24 12:44 Oxygen Delivery Room Air 08/12/24 12:44 Pulse Rate 85 08/12/24 16:11 Respiratory Rate 13 08/12/24 16:11 Blood Pressure 132/62 08/12/24 16:11 Pulse Oximetry 100 08/12/24 16:11 Oxygen Delivery Room Air 08/12/24 16:46 Medical Decision Making Vital Signs Vital Signs: Vital Signs Pulse Rate 100 08/12/24 12:44 Respiratory Rate 18 08/12/24 12:44 Blood Pressure 145/77 H 08/12/24 12:44 Pulse Oximetry 99 08/12/24 12:44 Oxygen Delivery Room Air 08/12/24 12:44 Pulse Rate 85 08/12/24 16:11 Respiratory Rate 13 08/12/24 16:11 Blood Pressure 132/62 08/12/24 16:11 Pulse Oximetry 100 08/12/24 16:11 Oxygen Delivery Room Air 08/12/24 16:46 Lab Data 08/12/24 14:31 08/12/24 15:49 Labs: Lab Results 08/12/24 Range/Units 14:31 WBC 8.7 (4.5-10.0) K/mm3 RBC 3.74 L (4.2-5.4) M/mm3 Hgb 12.1 (12.0-15.0) g/dL Hct 36.8 L (37.0-47.0) % MCV 98.4 (80-100) fl MCH 32.4 (26-34) pg MCHC 32.9 (32-36) g/dl RDW 12.4 (11.5-14.5) % Plt Count 388 H (150-375) k/mm3 MPV 8.7 (7.4-10.4) fl Immature Gran % (Auto) 0.8 H (0-0.5) % Neut % (Auto) 74.5 H (45.5-73.1) % Lymph % (Auto) 10.5 L (18.3-44.2) % Gilliam % (Auto) 12.8 H (2.6-8.5) % Eos % (Auto) 0.8 (0-4.4) % Baso % (Auto) 0.6 (0.2-1.2) % Lymph # (Auto) 0.91 (0.9-3.2) K/mm3 Gilliam # (Auto) 1.1 H (0.1-0.6) K/mm3 Eos # (Auto) 0.1 (0-0.3) K/mm3 Baso # (Auto) 0.1 (0.0-0.1) K/mm3 Abs Immat Gran (auto) 0.07 H (0.00-0.031) K/mm3 Absolute Neuts (auto) 6.5 (1.3-6.7) K/mm3 Absolute Nucleated RBC 0.000 (0.0-0.012) K/mm3 Nucleated RBC % 0.0 (0.0-0.2) % Discharge Plan Discharge Clinical Impression: Dilated bile duct, Adnexal mass Patient Disposition: Still a Patient Condition: Stable
[2024-08-12 14:45] LABS: Basophils Absolute Auto 0.1 K/mm3 (0.0-0.1); Basophils Percent Auto 0.6 % (0.2-1.2); Eosinophils Absolute Auto 0.1 K/mm3 (0-0.3); Eosinophils Percent Auto 0.8 % (0-4.4); Hematocrit 36.8 % (37.0-47.0); Hemoglobin 12.1 g/dL (12.0-15.0); Immature Granulocyte Absolute 0.07 K/mm3 (0.00-0.031); Immature Granulocyte Percent A 0.8 % (0-0.5); Lymphocytes Absolute Auto 0.91 K/mm3 (0.9-3.2); Lymphocytes Percent Auto 10.5 % (18.3-44.2); Mean Corpuscular HGB Conc 32.9 g/dl (32-36); Mean Corpuscular Hemoglobin 32.4 pg (26-34); Mean Corpuscular Volume 98.4 fl (80-100); Mean Platelet Volume 8.7 fl (7.4-10.4); Monocytes Absolute Auto 1.1 K/mm3 (0.1-0.6); Monocytes Percent Auto 12.8 % (2.6-8.5); Neutrophils Absolute Auto 6.5 K/mm3 (1.3-6.7); Neutrophils Percent Auto 74.5 % (45.5-73.1); Platelet Count Result 388 k/mm3 (150-375); Red Blood Count 3.74 M/mm3 (4.2-5.4); Red Cell Distribution Width 12.4 % (11.5-14.5); White Blood Count 8.7 K/mm3 (4.5-10.0)
[2024-08-12 14:47] VITALS: BP 105/53; PULSE 85; RESP 18; O2SAT 98
--- OUTSIDE RECORDS SUMMARY | 2024-08-12 15:00 | XMS_ITS | Data Portability ---
Author Organization [facility] Oralia BONILLA Address [address] [place] [address] Care Team Providers Care Business Process Specialist Name Role Phone JADON WALSH Primary Care [...] and I agree w/resident's note. Dr. Okeefe [email or web address] Not available 05/16/2023 18:19:09 Plan of Treatment Reminders Order Date Submit Date Provider Last Modified By Organization Details Last Modified Time Details Appointments None record ed. Lab TSH + free T4, serum 2023 024 EL[facility], [address], [address], 4 11:12:14 lipid panel, serum 2023 024 [facility], [address] [facility] [address], [place], [address], 4 11:12:48 pap, IG + CT/NG/ TV 2013 014 ELDRED [facility], [address] [facility], [address], [place], [address], 4 06:42:15 Referral gastro entero logist referr al [address], [address] [facility] , [place], [address], 4 11:42:06 oncolo gist referr al - [...] any possib le malign yareli. 2023 024 [facility], [address] [place] [address] , [facility] [address], [place], [address], 4 14:55:21 pulmon ologis t referr al [...] yareli. 2023 024 MARIUSZ Bryant Chen, [address] [facility], [place], [address], 5 14:06:42 Procedures None record ed. Surgeries None record ed. Imaging MAMMO, screen ing, bilate ral 2023 024 [email or web address] [facility], [address] [place], [address], 4 12:17:04 routin e mammog daylin exam, screen ing 2013 014 [email or web address] Not available 4 09:40:33 Medication Orders Spiriv a Respim at 2.5 mcg/ac tuatio n soluti on for inhala tion 2023 024 MAIRUSZ [id number], [address] [place], [address], 4 17:19:23 losart an 25 mg tablet 2023 024 [email or web address] [id number], [address] [place], [address], 4 22:13:57 Flagyl 500 mg tablet 2013 014 INTERFACE Not available 4 16:53:06 Patient TargetsNo targets recorded. Patient Instructions Encounter Date Encounter Id Patient Instructions Last Modified By Organization Details Last Modified Time 04/17/2023 [id number] Patient has no insurance which complicates followup for patient's medical concerns. Information was provided to patient and daughter about the Rubina program at [facility] and how to apply to Medicaid. 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 TRICH OMONA S VAGIN ESTEFANY IS PRESE NT. CELLU OREN COREAS ES ASSOC IATED WITH INFLA MMATI ON ARE PRESE NT. Not Available [facility] ([facility]) [address] [place], [address], 02/11/2014 06:42:14 02/06/20 14 02/08/2014 pap, IG + CT/NG /TV specimen adequacy: FABRICIO López SATIS FACTO RY FOR EVALU ATION . NO ENDOC ERVIC AL CELLS ARE PRESE NT. THIS IS CONSI STENT WITH A HISTO RY OF HYSTE RECTO MY. Not Available [facility] ([facility]) [address] [place], [address], 02/11/2014 06:42:14 02/06/20 14 02/08/2014 pap, IG + CT/NG /TV clinician provided ICD9: FABRICIO López V76.4 7 ; SPECI AL SCREE JENN FOR NJ NORRIS NEOPL ASMS, VAGIN A Not Available [facility] ([facility]) [address] [place], [address], 02/11/2014 06:42:14 02/06/20 14 02/08/2014 pap, IG + CT/NG /TV performed by: FABRICIO DENNIS CYTOT MALOU López (ASCP ) Not Available [facility] ([facility]) [address] [place], [address], 02/11/2014 06:42:14 02/06/20 14 02/08/2014 pap, IG + CT/NG /TV . . Not Available [facility] ([facility]) [address] [place], [address], 02/11/2014 06:42:14 02/06/20 14 02/08/2014 pap, IG [...] DO OCCUR . . Not Available [facility] ([facility]) [address] [place], [address], 02/11/2014 06:42:14 02/06/20 14 02/10/2014 pap, IG + CT/NG /TV HPV, high-risk NEGATI VE negati ve THIS HIGH- RISK HPV TEST DETEC TS THIRT EEN HIGH- RISK TYPES (16/1 8/31/ 33/35 /39/4 /51/ 52/56 /58/5 ) WITHO UT DIFFE RENTI ATION . . Not Available [facility] ([facility]) [address] [place], [address], 02/11/2014 06:42:14 02/06/20 14 02/10/2014 pap, IG + CT/NG /TV chlamydia, nuc. acid amp NEGATI VE negati ve Not Available [facility] ([facility]) [address] [place], [address], 02/11/2014 06:42:14 02/06/20 14 02/10/2014 pap, IG + CT/NG /TV gonococcus, nuc. acid amp NEGATI VE negati ve Not Available [facility] ([facility]) [address] [place], [address], 02/11/2014 06:42:14 02/06/20 14 02/10/2014 pap, IG + CT/NG /TV trich vag by HEORN POSITI VE negati ve abnormal Not Available [facility] ([facility]) [address] [place], [address], 02/11/2014 06:42:14 04/19/19 24 04/20/2023 LIPID PANEL cholesterol, total 178 mg/dL 100-19 9 Not Available [facility] ([facility]) [address] [facility] [place], [address], 04/20/2023 11:12:48 04/19/19 24 04/20/2023 LIPID PANEL triglyceride s 58 mg/dL 0-149 Not Available [facility] ([facility]) [address] [place], [address], 04/20/2023 11:12:48 04/19/19 24 04/20/2023 LIPID PANEL HDL cholesterol 76 mg/dL >39 Not Available [facility] ([facility]) [address] [place], [address], 04/20/2023 11:12:48 04/19/19 24 04/20/2023 LIPID PANEL VLDL cholesterol casie 11 mg/dL 5-40 Not Available [facility] ([facility]) [address], [place], [address], 04/20/2023 11:12:48 04/19/19 24 04/20/2023 LIPID PANEL LDL chol calc ([facility]) 91 mg/dL 0-99 Not Available [facility] ([facility]) [address] [place], [address], 04/20/2023 11:12:48 04/19/19 24 04/20/2023 TSH RFX ON ABNOR MAL TO FREE T4 TSH 1.960 uIU/m L 0.450- 4.500 Not Available [facility] ([facility]) [address] [place], [address], 04/20/2023 11:12:49 04/20/19 24 03/02/2023 CT, chest , w/ contr ast No observ ation record ed. [email or web address] Not Available 2023 15:10:32 Result Notes None recorded. Problems Name Problem SNOMED Code Status Onset Date Resolution Date Notes Provider Name and Address Organization Details Recorded Time Wheezing 49838711 Active 2023 JADON WALSH MD Attn: Accounting ,[address] [place], [address] , [place] [facility] 4 19:25:57 CT of chest abnormal 00113087658 459377 Active 2023 JADON WALSH MD Attn: Accounting ,[address] [place], [address] , [facility] - [facility] 4 08:52:03 Tobacco user 834462614 Active 2023 JADON WALSH MD Attn: Accounting ,[address] [place], [address] , [facility] - [facility] 4 19:25:54 Benign essential hypertens ion 7025527 Active 2023 JADON WALSH MD Attn: Accounting ,[address] [place], [address] , [facility] - [facility] 4 19:25:47 Infection by Trichomon as [id number] Completed 05/13/2023 JADON WALSH MD Attn: Accounting ,[address] [place], [address] , [place] [facility] 4 15:14:00 Notes:Vaginal bleeding a few weeks ago Problem Notes None recorded. Procedures Surgical History Date Name Laterality Status Provider Name and Address Organization Details Recorded Time 02/06/20 14 Date of Last Pap Smear completed Natal[place]ia Araya [place] 02/11/2014 16:34:53 Hysteroscopy completed Dayna Frey [place] 15:16:14 Tubal Ligation completed Dayna Frey [facility] 02/05/2014 15:16:14 Imaging Results None recorded. [...] Address Organization Details Last Updated DateTime 4 14492.3 5 g 98.1 [degF] 94 /min 95 % 95 % 174 mm[Hg] 82 mm[Hg] Merlene Farrar MA [facility] 4 16:16:35 Date Recorded Systolic blood pressure Diastolic blood pressure Provider Name and Address Organization Details Last Updated DateTime 04/17/2023 160 mm[Hg] 82 mm[Hg] Flores Hardin MA [facility] 04/17/2023 17:16:54 Date Recorded Body weight Body mass index (BMI) Body height Body temperature Heart rate Oxygen saturation Oxygen saturation in Arterial blood by Pulse oximetry Respiratory rate Systolic blood pressure Diastolic blood pressure Provider Name and Address Organization Details Last Updated DateTime 4 15631.7 9 g 19.4 kg/m2 157.48 cm 97.6 [degF] 82 /min 99 % 99 % 16 /min 147 mm[Hg] 83 mm[Hg] Merlene Farrar MA [facility] 4 16:17:09 Date Recorded Body height Body mass index (BMI) Body weight Systolic blood pressure Diastolic blood pressure Provider Name and Address Organization Details Last Updated DateTime 02/05/2014 157.48 cm 21.4 kg/m2 77455.30 729 g 142 mm[Hg] 80 mm[Hg] Dayna Frey [facility] 4 15:16:14 Date Recorded Body height Body mass index (BMI) Body weight Systolic blood pressure Diastolic blood pressure Provider Name and Address Organization Details Last Updated DateTime 02/11/2014 157.48 cm 21.4 kg/m2 42898.30 729 g 128 mm[Hg] 80 mm[Hg] Nataliia Araya [facility] 4 16:34:53 Social History Question Answer Notes LastModified by Organizat ion Details LastModified Time Tobacco Smoking Status Current Every Day Smoker Dayna Frey [facility] 02/05/2014 15:16:14 What Was The Date Of Your Most Recent Tobacco Screening? 05/15/2023 Information not available 05/15/2023 How Many Children Do You Have? 3 [email or web address] Information not available 02/05/2014 What Is Your Relationship Status? [email or web address] Information not available 02/05/2014 Are You Sexually [...] Organization Details LastModified Time Mother Heart disease [email or web address] Not available 2013 15:16:14 Medical History Condition [...] SNOMED-CT Code Diagnosis ICD10 Code Diagnosis Note [id number] MD Dedrick Duran ([place] [address]) [address] [facility] [address] [facility] [place] [address] 02/05/2014 14:55:01 02/06/2014 09:44:51 Screening for cancer [id number] MD Dedrick Duran ([facility]) [address] [facility] [facility] [place] [address] 02/11/2014 16:19:32 02/11/2014 16:57:22 Infection by Trichomonas [id number] MD Dedrick Sen 14 IM [address] [facility] [address] [place] [address] [address] 04/17/2023 15:41:55 04/24/2023 07:54:20 Adult health examination 455779306 Z00.00 Patient presents today to establish care. Wheezing 91035749 R06.2 Wheezing present on exam. States that she has wheezing daily and uses his albuterol inhaler frequently throughout the day. In light of recent CT chest that shows possible mass to lung, will refer to pulmonolog y as well as to oncology. Will also start Spiriva inhaler for maintenanc e use. Screening mammography 24 419644 Z12.31 Patient has never had a mammogram, will refer. Screening for malignant neoplasm of colon 880772910 Z12.11 Patient has never had a colonoscop y, will refer. CT of chest abnormal 262 5349123 4847637 R93.89 Radiologic findings concerning for malignancy . [...] possible malignancy . Benign ess ential hypertension 1537974 I10 [id number] MD Dedrick Sen 14 IM 4 [facility] [address] [place] [address] 05/15/2023 16:06:13 05/17/2023 08:53:58 CT of chest abnormal [id number] 8249141 R93.89 Radiologic findings concerning for malignancy . [...] Singh Member ID Guarantor Name 02/05/2014 1 [facility] (MEDICAID HMO) Yadira Livezey [id number] Yadira Livezey 02/11/2014 1 [facility] (MEDICAID HMO) Yadira Livezey [id number] Yadira Livezey 04/17/2023 1 *SELF PAY* Orozco [...] kids, 2 still livingSafe: YesWork: Works at [email or web address]: Eats Bizily daily, also eats fruit and veggiesExercise: Walks [...] Medicaid. JADON WALSH MD Attn: Accounting,[address] [place], [address], [facility] - [facility] 04/21/2023 16:33:26 05/15/2023 text/html Yadira [...] appointment. Shahram Okeefe MD Attn: Accounting,[address] [facility] [address], [place], [address], [facility] - [facility] 05/16/2023 18:19:20 OBGyn Episode No OBEpisode recorded.
--- OUTSIDE RECORDS SUMMARY | 2024-08-12 15:00 | XMS_ITS | Clinical Summary ---
Author Organization [facility] Address [address] [place] [address] Care Team Providers Care Medical Scientist Name Role Phone Unknown, Provider Primary Care Provider Unavaila ble Source Comments [facility],non-[facility] Affiliates and Associated Physician Practices is amultiple site organization consisting of ambulatory clinics and hospital sitesin [place], [place], [place] and [place]. This disclosure is being madepursuant to the Care Everywhere program and may not contain all information available regarding this patient. Last updated 17.[facility] monEchelle Social History Tobacco Use Types Packs/Day Years [...] age to complete this topic Care Teams Medical Scientist Relationship Specialty Start Date End Date Unknown, Provider PCP - General 12/31/15
--- OUTSIDE RECORDS SUMMARY | 2024-08-12 15:00 | XMS_ITS | Referral Summary ---
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 Gender Identity Not on file Sexual Orientation Not on file Last Filed Vital Signs Vital Sign Reading Time Taken Comments Blood Pressure 130/68 03/02/2023 5:02 PM DRAPERY WORKER Pulse 96 03/02/2023 5:02 PM DRAPERY WORKER Temperature 36.7 C (98.1 F) 03/02/2023 12:46 PM DRAPERY WORKER Respiratory Rate 18 03/02/2023 5:02 PM DRAPERY WORKER Oxygen Saturation 91% 03/02/2023 5:02 PM DRAPERY WORKER Inhaled Oxygen Concentration - - Weight 45.4 kg (100 lb) 03/02/2023 12:46 PM DRAPERY WORKER Height 157.5 cm (5' 2) 03/02/2023 12:46 PM DRAPERY WORKER Body Mass Index 18.29 03/02/2023 12:46 PM DRAPERY WORKER Plan of Treatment Not on file Insurance [facility] Advance Directives For more information, please contact: [phone] * Full Code (Latest Code Status on File) Date Activated Date Inactivated Comments 06/04/2017 1:03 PM 06/06/2017 4:34 PM Care Teams Sap Bw Consultant Relationship Specialty Start Date End Date No, Physician PCP - General 06/06/17
--- OUTSIDE RECORDS SUMMARY | 2024-08-12 15:00 | XMS_ITS | Clinical Summary ---
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
--- OUTSIDE RECORDS SUMMARY | 2024-08-12 15:00 | XMS_ITS | Clinical Summary ---
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 Gender Identity Not on file Sexual Orientation Not on file Obstetrics History Last Filed Vital Signs Vital Sign Reading Time Taken Comments Blood Pressure 130/68 03/02/2023 5:02 PM TRANSCRIBING OPERATOR HEAD Pulse 96 03/02/2023 5:02 PM TRANSCRIBING OPERATOR HEAD Temperature 36.7 C (98.1 F) 03/02/2023 12:46 PM TRANSCRIBING OPERATOR HEAD Respiratory Rate 18 03/02/2023 5:02 PM TRANSCRIBING OPERATOR HEAD Oxygen Saturation 91% 03/02/2023 5:02 PM TRANSCRIBING OPERATOR HEAD Inhaled Oxygen Concentration - - Weight 45.4 kg (100 lb) 03/02/2023 12:46 PM TRANSCRIBING OPERATOR HEAD Height 157.5 cm (5' 2) 03/02/2023 12:46 PM TRANSCRIBING OPERATOR HEAD Body Mass Index 18.29 03/02/2023 12:46 PM TRANSCRIBING OPERATOR HEAD Plan of Treatment Health Maintenance Due Date Last Done Comments Breast Cancer Screening-Mammogram 1963 Colon Cancer Screening-Colonoscopy 1963 Depression Screening 1963 Hepatitis C Screening 1963 DTaP/Tdap/Td Vaccine (1 - Tdap) 1974 Hepatitis B Screening 1981 Regular Well Visit/Exam 18-64 1981 Pneumococcal vaccine <65 (1 of 2 - PCV) 1982 Zoster Vaccine (1 of 2) 2013 Influenza Vaccine (Season Ended) 2024 Insurance [facility] Advance Directives For more information, please contact: [phone] * Full Code (Latest Code Status on File) Date Activated Date Inactivated Comments 06/04/2017 1:03 PM 06/06/2017 4:34 PM Care Teams Brush Worker Relationship Specialty Start Date End Date No, Physician PCP - General 06/06/17
[2024-08-12 16:11] VITALS: BP 132/62; PULSE 85; RESP 13; O2SAT 100
[2024-08-12 16:18] LABS: Alanine Aminotransferase 45 U/L (6-35); Albumin Level 3.7 g/dL (3.5-5.1); Alkaline Phosphatase 99 U/L (38-126); Anion Gap 6 mmol/L (4-12); Aspartate Amino Transferase 40 U/L (14-36); Bilirubin,Total 0.7 mg/dL (0.2-1.3); Blood Urea Nitrogen 12 mg/dL (7-17); Carbon Dioxide 29 mmol/L (22-30); Chloride 98 mmol/L (98-107); Estimated CRCL calculation 63 ml/min; Estimated Glomerular Filt Rate > 60; Glucose 106 mg/dL (65-110); Lipase 55 U/L (23-300); Sodium 133 mmol/L (137-145); Total Protein 7.1 g/dL (6.3-8.2)
--- NOTE | 2024-08-12 16:30 | PM.IMHP ---
H&P: HPI History of Present Illness Date/Time: 08/12/24 16:30 Chief Complaint: Abdominal pain, abnormal imaging Narrative: This is a 59-year-old female patient who was admitted to the hospital due to abdominal pain with abnormal imaging. Patient started having diarrhea on 08/05/24 after eating lunch. She continued the diarrhea for the next 3 days while developing right lower quadrant abdominal pain. Patient was seen at [facility] on 08/07 and told likely gastroenteritis. On 08/11 patient came to ER where she had CT scan which showed concern for CBD dilation with possible soft tissue mass at the sphincter of Oddi and complex mass of left ovary. Ultrasound of RUQ and pelvis completed. RUQ US showed dilation of CBD and pancreatic duct and a likely gallstone stuck to the gallbladder wall as well concerning for possible choledocholithiasis. Pelvis US showed complex left adnexal cyst which likely included the left ovary. MRCP and MRI pelvis were recommended. Patient ended up leaving against medical advice from ER because she had no one to come get her merida and take care of her dogs. She returned back to ER today on 08/12 to be admitted for further recommended imaging. GI was consulted by ER. SAP PROJECT MANAGER not yet consulted. Prior history over 20 years ago of hysterectomy and her previous SAP PROJECT MANAGER . Patient does not have a primary care provider or any other care team members. She lives closer to [place] but her daughter brings her this way when needed. Patient denies nausea/vomiting, fever or chills but states she always gets cold at night. Patient does smoke and nicotine patch made available. Patient drinks a couple beers a night, no history of ETOH withdrawal. Patient very anxious about MRI, will order PRN anxiety medication. Review of Systems Review of Systems: All systems reviewed & are unremarkable except as noted in HPI and below PMFSH Past Medical History Medical History Tobacco abuse Alcohol abuse Surgical History Surgical History History of hysterectomy Family History Family History Mother Heart disease Social History Social History Smoking packs per day: 1 Smoking cigarettes per day: 20.0 Years smoked: 40 Smoking pack-years: 40.00 Smoking status: Current every day smoker Tobacco type: cigarettes Alcohol intake: current Drinks per week: 14 Alcohol use details: Several beers daily Substance use: current Substance use type: marijuana Do You Feel Safe in your Home?: Yes Lack of Transportation: No Lack of Food: Never True Current Housing: I Have Housing Concerned About Future Housing: No Difficulty Paying Gas/Electric Bills: No Difficulty Paying for Meds: No Currently Unemployed: No Education: High School Diploma/GED Difficulty w/ Childcare or Family Care: No Living arrangements: alone Occupation/Education: occupation Additional occupation/education comments: [employer] Gender identity (if verbalized by the patient): Female Sexual Orientation (if Verbalized by the Patient): Straight or Heterosexual Spiritual care concerns: No Meds Home Medications and Allergies Home Medications ?Medication ?Instructions ?Recorded ?Confirmed ?Type albuterol sulfate 90 mcg/actuation 2 puff inhalation Q6H PRN 08/07/24 08/12/24 History aerosol inhaler shortness of breath or wheezing losartan 25 mg tablet 25 mg PO DAILY 08/07/24 08/12/24 History Allergies Allergy/AdvReac Type Severity Reaction Status Date / Time morphine Allergy Rash Verified 08/12/24 17:36 adhesive tape AdvReac Intermediate Rash Verified 08/12/24 17:36 Vital Signs Vital Signs - 24 hr 08/12/24 12:44 08/12/24 12:44 08/12/24 12:44 Pulse Rate 100 100 Respiratory Rate 18 18 Blood Pressure 145/77 H 145/77 H Pulse Oximetry 99 100 100 Oxygen Delivery Room Air 08/12/24 14:47 08/12/24 16:11 Pulse Rate 85 85 Respiratory Rate 18 13 Blood Pressure 105/53 L 132/62 Pulse Oximetry 98 100 Oxygen Delivery Exam Narrative: GENERAL: Well-appearing, well-nourished, and in no acute distress. HEAD: Normocephalic, atraumatic. ENT:? Mucous membranes moist. CHEST: Clear to auscultation.? No respiratory distress. HEART: Regular rate and rhythm. ? Normal peripheral pulses. ABDOMEN: Soft, mildly rotund, right lower quadrant tenderness without rebound or guarding EXTREMITIES: Normal range of motion. No peripheral edema. SKIN: Warm dry normal color NEURO: Alert and oriented x3. PSYCH: Mildly anxious H&P: Results Labs Labs: Short CBC 08/12/24 Range/Units 14:31 WBC 8.7 (4.5-10.0) K/mm3 Hgb 12.1 (12.0-15.0) g/dL Hct 36.8 L (37.0-47.0) % Plt Count 388 H (150-375) k/mm3 BMP 08/12/24 15:49 Sodium 133 L Potassium 4.0 Chloride 98 Carbon Dioxide 29 BUN 12 D Creatinine 0.59 L Glucose 106 Calcium 9.0 Liver Function 08/12/24 Range/Units 15:49 Total Bilirubin 0.7 (0.2-1.3) mg/dL AST 40 H (14-36) U/L ALT 45 H (6-35) U/L Alkaline Phosphatase 99 (38-126) U/L Albumin 3.7 (3.5-5.1) g/dL Pulse Oximetry SpO2 results: 98-100% on room air Attestation: I personally reviewed and interpreted this pulse oximetry as follows: Interpretation: No need for supplemental oxygenation at this time Imaging US - abdomen: Radiologist's impression: EXAMINATION: US abdomen limited DATE: 08/11/2024 18:05 INDICATION: GALLBLADDER TECHNIQUE: Multiple grayscale and Doppler ultrasound images of limited portions of the abdomen were obtained. COMPARISON: CT abdomen pelvis, same date. FINDINGS: The main pancreatic duct is dilated to 3 mm. The liver is normal with normal echogenicity and echotexture. No surface nodularity. Normal hepatopetal flow in the main portal vein. Mild gallbladder wall thickening to 3 mm. 5 mm echogenic nonmobile bile focus adherent to the gallbladder wall, with twinkle artifact. No pericholecystic fluid The common bile duct measures 9 mm. There was no sonographic Davis sign. Small volume perihepatic fluid. IMPRESSION: Common bile duct and mild pancreatic duct dilation. Nonspecific gallbladder wall thickening. Likely gallstone, adherent to the gallbladder wall. Small volume ascites. Reviewed, dictated and finalized at location K. US Pelvis: Radiologist's impression: EXAMINATION: US pelvic complete DATE: 08/11/2024 18:10 INDICATION: LEFT ADNEXAL MASS TECHNIQUE: Multiple transabdominal and endovaginal sonographic images of the pelvis were obtained. COMPARISON: None. FINDINGS: Uterus: Surgically absent. Right Ovary: Not visualized. Left Ovary: Left ovary is not discretely visualized. Large multilobulated multiseptated left adnexal mass. Irregular areas of wall thickening and nodularity. Nonvascular internal echogenicity (CS 1). Mass measures at least 14.9 cm it is difficult to completely include within the transducer [id number]. ORADS 4. There is no free fluid in the pelvis. IMPRESSION: Large complex left adnexal mass. Prior recommendations for pelvic MRI and gynecology or gynecology/oncology consultation are unchanged. Reviewed, dictated and finalized at location K. CT scan - abdomen: Radiologist's impression: EXAMINATION: CT abdomen pelvis w con DATE: 08/11/2024 15:27 INDICATION: UPPER ABDOMINAL PAIN TECHNIQUE: Computed tomography (CT) of the abdomen and pelvis was performed with 100 mL Omnipaque-350 intravenous contrast. Automated exposure control and iterative reconstruction technique were employed. The dose-length product was 177.20 mGy-cm. COMPARISON: None. FINDINGS: Lower thorax: Unremarkable Liver: Normal. Biliary/Gallbladder: Gallbladder is normal. The common bile duct measures 8 mm, without inflammatory change. Prominent soft tissue density at the sphincter of Oddi, measuring 13 mm. No obstructing stone. No intrahepatic duct dilation Pancreas: No mass or duct dilation. Spleen: Normal. Adrenals:No mass. Kidneys: No suspicious mass, obstructing stone, or hydronephrosis. GI tract: Mild distal esophageal and gastric wall edema. No small or large bowel dilation. Normal appendix. Mesentery/Peritoneum: No mass or free air. Retroperitoneum: No mass. Atherosclerotic calcifications of intra-abdominal arterial vessels. Pelvis: Large left adnexal mass with cystic and solid components, measuring 12.3 AP x 19.0 transverse x 15.9 craniocaudad. The solid component is partially calcified, measuring 4.9 x 6.0 cm, and may represent an enlarged left ovary. Right ovary measuring 4.3 x 2.4 cm, associated with a simple cyst. Incompletely distended urinary bladder. Small volume fluid in the deep pelvis. The uterus is surgically absent. Soft Tissues: Soft tissues and body wall unremarkable. Bones: No acute osseous finding. IMPRESSION: Mild esophagitis/gastritis. 8 mm common bile duct. Possible soft tissue mass at the sphincter of Oddi. Correlate with biliary labs. Recommend GI consultation for possible ERCP. Large left adnexal mass measuring up to 15.9 cm with cystic and solid components. Recommend pelvic MRI and gynecology or gynecology/oncology consultation. Trace pelvic ascites. Reviewed, dictated and finalized at location K. Assessment and Plan Assessment and plan (1) Dilated bile duct: Code(s): K83.8 - Other specified diseases of biliary tract Status: Acute Assessment and Plan: -CBD to 8 mm and pancreatic duct to 3 mm with possible 13 mm soft tissue mass at sphincter of Oddi and gallstone adherent to gallbladder wall -Bili labs not significant, normal WBC -Pain is lower in abdomen than typical for biliary colic (2) Adnexal mass: Code(s): N94.89 - Other specified conditions associated with female genital organs and menstrual cycle Status: Acute Assessment and Plan: -Large complex left adnexal mass noted on CT scan as seemingly incidental finding since pain is on right side -US shows the same -MRI recommended, this order has been placed -SAP PROJECT MANAGER will be consulted on 08/13 (3) Diarrhea: Code(s): R19.7 - Diarrhea, unspecified Status: Acute Assessment and Plan: -Diarrhea improved since onset 08/05 but pain has not improved (4) Hyponatremia: Code(s): E87.1 - Hypo-osmolality and hyponatremia Status: Acute Assessment and Plan: -Mild hyponatremia noted, sodium 131 on 08/11 ER visit -Sodium 133 in ER on 08/12 -May be related to daily beer consumption or SIADH from acute pain (5) History of hysterectomy: Code(s): Z90.710 - Acquired absence of both cervix and uterus Status: Acute Assessment and Plan: -Hysterectomy over 20 years ago (6) Tobacco abuse: Code(s): Z72.0 - Tobacco use Status: Acute Assessment and Plan: -Nicotine patch ordered Quality If No VTE Prophylaxis Answer both mechanical and pharmacologic: Reason no mechanical VTE proph: low risk/not indicated Reason no pharmacologic proph: low risk/not indicated Hospitalist MIPS Advance Care Plan I have confirmed that the patient's Advanced Care Plan is present, code status is documented, or surrogate decision maker is listed in patient medical record.: Yes Medication Reconciliation I have utilized all available resources to obtain, update and review the patients current medications (includes all prescriptions, OTC, herbals, cannabis, and nutritional supplements).: Yes
[2024-08-12 16:32] VITALS: BMI 18.5
--- NOTE | 2024-08-12 16:46 | ADMGEN ---
This patient, Yadira Rodriguez, was admitted to Medical Room 346-01. Patient/family oriented to hospital policies and general routines including ID bracelet, bed and alarms, visiting hours, pain management, procedures, bathroom and other care routines, personal items, smoking policy, room service/diet, and visiting hours. Information on how to activate the Rapid Response Team has been discussed. Patient/Family are encouraged to report perceived risks to care and to ask questions if they do not understand what they are told or what they should do.
[2024-08-12] MEDS: NICOTINE (*PBKC) 21 MG PATCH 1 PATCH TRANSDERM (20:57)
[2024-08-12] MEDS: HYDROcodone/acetaminophen (*CRX) 5-325 MG TABLET 1 TAB PO (21:29)
[2024-08-12 22:50] VITALS: BP 142/62; PULSE 88; RESP 20; TEMP 36.8; O2SAT 98
[2024-08-13] MEDS: HYDROcodone/acetaminophen (*CRX) 5-325 MG TABLET 1 TAB PO ×3 (04:08→17:51)
[2024-08-13 05:59] LABS: Basophils Percent Auto 0.6 % (0.2-1.2); Eosinophils Absolute Auto 0.1 K/mm3 (0-0.3); Eosinophils Percent Auto 1.7 % (0-4.4); Hematocrit 34.2 % (37.0-47.0); Hemoglobin 10.9 g/dL (12.0-15.0); Immature Granulocyte Absolute 0.05 K/mm3 (0.00-0.031); Immature Granulocyte Percent A 0.8 % (0-0.5); Lymphocytes Absolute Auto 0.84 K/mm3 (0.9-3.2); Lymphocytes Percent Auto 13.3 % (18.3-44.2); Mean Corpuscular HGB Conc 31.9 g/dl (32-36); Mean Corpuscular Hemoglobin 31.3 pg (26-34); Mean Corpuscular Volume 98.3 fl (80-100); Mean Platelet Volume 8.5 fl (7.4-10.4); Monocytes Absolute Auto 0.8 K/mm3 (0.1-0.6); Monocytes Percent Auto 12.5 % (2.6-8.5); Neutrophils Absolute Auto 4.5 K/mm3 (1.3-6.7); Neutrophils Percent Auto 71.1 % (45.5-73.1); Platelet Count Result 373 k/mm3 (150-375); Red Blood Count 3.48 M/mm3 (4.2-5.4); Red Cell Distribution Width 12.5 % (11.5-14.5); White Blood Count 6.3 K/mm3 (4.5-10.0)
[2024-08-13 06:00] VITALS: BP 147/72; PULSE 95; RESP 18; TEMP 36.7; O2SAT 97
[2024-08-13 06:23] LABS: Alanine Aminotransferase 34 U/L (6-35); Albumin Level 3.3 g/dL (3.5-5.1); Alkaline Phosphatase 85 U/L (38-126); Anion Gap 5 mmol/L (4-12); Aspartate Amino Transferase 28 U/L (14-36); Bilirubin,Total 0.4 mg/dL (0.2-1.3); Blood Urea Nitrogen 6 mg/dL (7-17); Calcium 8.7 mg/dL (8.4-10.2); Carbon Dioxide 28 mmol/L (22-30); Chloride 99 mmol/L (98-107); Estimated CRCL calculation 70 ml/min; Estimated Glomerular Filt Rate > 60; Glucose 120 mg/dL (65-110); Lipase 114 U/L (23-300); Potassium 3.7 mmol/L (3.4-5.0); Sodium 132 mmol/L (137-145); Total Protein 6.3 g/dL (6.3-8.2)
[2024-08-13 07:42] VITALS: O2SAT 97
--- NOTE | 2024-08-13 08:26 | P.CONGI_ITS ---
Assessment and Plan Assessment and plan (1) Dilated bile duct: Code(s): K83.8 - Other specified diseases of biliary tract Status: Acute Assessment and Plan: The most prominent feature of this patient's case is undoubtedly the presence of a giant pelvic mass, highly suspicious for malignancy. We're currently awaiting consultation with Gynecology to establish a surgical plan,which can be taken care of in our Hospital versus transfer to a tertiary care center for specialized management. Regarding the upper abdominal findings, there's concern for a space-occupying lesion in the ampullary region. To further characterize this, we are waiting on an abdominal MRI with MRCP. Following this, an endoscopic ultrasound will likely be needed for detailed anatomical evaluation and potentially obtaining tissue for biopsy. (2) Adnexal mass: Code(s): N94.89 - Other specified conditions associated with female genital organs and menstrual cycle Status: Acute GI Consult Note Consult date/time: 08/13/24 08:26 Reason for consult: Possible mass in the area of the ampulla and prominent common bile duct HPI: Yadira Rodriguez, a 59-year-old woman, was admitted yesterday for acute diarrhea and crampy lower abdominal pain. During her physical exam, a concerning large pelvic mass was identified. Her history is significant for a prior hysterectomy many years ago, without subsequent gynecological surveillance. she denies typical symptoms associated with such findings, specifically jaundice, nausea, vomiting, or chronic abdominal pain. Imaging studies show: * Pelvic Ultrasound and CT: These revealed a giant left adnexal mass, at least 14.9, characterized by multilobulated and multiseptated features, along with irregular wall thickening and nodularity. * Upper Abdominal Imaging: dilated main pancreatic duct measuring 3 mm and a common bile duct measuring 8 mm. There is a 13 soft tissue density noted in the ampullary area. No common bile duct stones or intrahepatic biliary dilation were present. Her recent lab work shows a white count of 8.7, hemoglobin 12.1, platelet count 388, sodium 133, potassium 4.0, creatinine 0.59, AST 40, ALT 45, alkaline phosphatase 99, albumin 3.7, and bilirubin 0.7. Review of Systems 2 Review of Systems: All systems reviewed & are unremarkable except as noted in HPI and below PMFSH Past Medical History Medical History Tobacco abuse Alcohol abuse Surgical History Surgical History History of hysterectomy Family History Family History Mother Heart disease Social History Social History Smoking packs per day: 1 Smoking cigarettes per day: 20.0 Years smoked: 40 Smoking pack-years: 40.00 Smoking status: Current every day smoker Tobacco type: cigarettes Alcohol intake: current Drinks per week: 14 Alcohol use details: Several beers daily Substance use: current Substance use type: marijuana Do You Feel Safe in your Home?: Yes Lack of Transportation: No Lack of Food: Never True Current Housing: I Have Housing Concerned About Future Housing: No Difficulty Paying Gas/Electric Bills: No Difficulty Paying for Meds: No Currently Unemployed: No Education: High School Diploma/GED Difficulty w/ Childcare or Family Care: No Living arrangements: alone Occupation/Education: occupation Additional occupation/education comments: [employer] Gender identity (if verbalized by the patient): Female Sexual Orientation (if Verbalized by the Patient): Straight or Heterosexual Spiritual care concerns: No Meds Home Medications and Allergies Home Medications ?Medication ?Instructions ?Recorded ?Confirmed ?Type albuterol sulfate 90 mcg/actuation 2 puff inhalation Q6H PRN 08/07/24 08/12/24 History aerosol inhaler shortness of breath or wheezing losartan 25 mg tablet 25 mg PO DAILY 08/07/24 08/12/24 History Allergies Allergy/AdvReac Type Severity Reaction Status Date / Time morphine Allergy Rash Verified 08/12/24 17:36 adhesive tape AdvReac Intermediate Rash Verified 08/12/24 17:36 Vital Signs Vital Signs - 24 hr 08/12/24 12:44 08/12/24 12:44 08/12/24 12:44 Temperature Pulse Rate 100 100 Respiratory Rate 18 18 Blood Pressure 145/77 H 145/77 H Pulse Oximetry 99 100 100 Oxygen Delivery Room Air 08/12/24 14:47 08/12/24 16:11 08/12/24 16:46 Temperature Pulse Rate 85 85 Respiratory Rate 18 13 Blood Pressure 105/53 L 132/62 Pulse Oximetry 98 100 Oxygen Delivery Room Air 08/12/24 20:00 08/12/24 22:50 08/13/24 06:00 Temperature 98.2 F 98.1 F Pulse Rate 88 95 Respiratory Rate 20 18 Blood Pressure 142/62 H 147/72 H Pulse Oximetry 98 97 Oxygen Delivery Room Air 08/13/24 07:42 Temperature Pulse Rate Respiratory Rate Blood Pressure Pulse Oximetry 97 Oxygen Delivery Room Air Exam 2 Narrative: Thin patient, oriented x3, cooperative. Looks chronically ill. Abdomen: Large firm mass occupying practically the entire lower hemiabdomen. Bowel sounds present, nontender, no rebound. Results Labs 08/13/24 05:31 08/13/24 05:31 Labs: Short CBC 08/12/24 08/13/24 Range/Units 14:31 05:31 WBC 8.7 6.3 (4.5-10.0) K/mm3 Hgb 12.1 10.9 L (12.0-15.0) g/dL Hct 36.8 L 34.2 L (37.0-47.0) % Plt Count 388 H 373 (150-375) k/mm3 BMP 08/12/24 08/13/24 15:49 05:31 Sodium 133 L 132 L Potassium 4.0 3.7 Chloride 98 99 Carbon Dioxide 29 28 BUN 12 D 6 L D Creatinine 0.59 L 0.51 L Glucose 106 120 H Calcium 9.0 8.7 Liver Function 08/12/24 08/13/24 Range/Units 15:49 05:31 Total Bilirubin 0.7 0.4 (0.2-1.3) mg/dL AST 40 H 28 (14-36) U/L ALT 45 H 34 (6-35) U/L Alkaline Phosphatase 99 85 (38-126) U/L Albumin 3.7 3.3 L (3.5-5.1) g/dL
[2024-08-13] MEDS: NICOTINE (*PBKC) 21 MG PATCH 1 PATCH TRANSDERM (08:49)
[2024-08-13] MEDS: LOSARTAN POTASSIUM 25 MG TABLET PO (08:50)
--- NOTE | 2024-08-13 10:26 | P.CONS_ITS ---
Assessment and Plan Assessment and plan (1) Adnexal mass: Code(s): N94.89 - Other specified conditions associated with female genital organs and menstrual cycle Status: Acute Assessment and Plan: 59 yo female who presented to the hospital with c/o diarrhea and abdominal pain imaging in the ED showed a large left adnexal mass Large multilobulated multiseptated left adnexal mass. Irregular areas of wall thickening and nodularity. Nonvascular internal echogenicity. Mass measures at least 14.9 cm ORADS 4. pt reports pain is GI related does report some increased bloating with eating discussed concerns for potential malignancy CA-125 ordered would recommend surgical evaluation discussed that patient may need to meet with a time broker oncologist to discuss surgical planning would recommend outpatient follow up with possible referral to Railroad Operating Engineer Oncology [facility] REGULATOR ASSEMBLER will continue to follow peripherally f/u on CA-125 HPI Data of Consult Date/Time: 08/13/24 10:26 Requesting Physician: Sue Mascorro MD Primary Care Provider: SUPERVISOR SOAKERS PHYSICIAN Consult Narrative Reason for consult: left adnexal mass Narrative: Yadira Rodriguez is a 59 year old female who presented with abdominal pain and diarrhea. Pt developed diarrhea and abdominal pain after eating lunch at work. She states she dealt with diarrhea for 3 days. She was evaluated at urgent care and was dx with gastroenteritis. She then presented to the ED for intractable pain. CT scan and pelvic US revealed a large left adnexal mass. She states her pain is in the low abdomen and mostly on the right side. She reports some relief of symptoms with bowel movements. Pt is s/p hysterectomy 25 years ago. She denies any history of hormonal therapy. She denies any family history of gynecologic cancers. She has felt bloating with eating. Denies any early satiety or unintentional weight loss. Review of Systems 2 Review of Systems: All systems reviewed & are unremarkable except as noted in HPI and below PMFSH Past Medical History Medical History Tobacco abuse Alcohol abuse Surgical History Surgical History History of hysterectomy Family History Family History Mother Heart disease Social History Social History Smoking packs per day: 1 Smoking cigarettes per day: 20.0 Years smoked: 40 Smoking pack-years: 40.00 Smoking status: Current every day smoker Tobacco type: cigarettes Alcohol intake: current Drinks per week: 14 Alcohol use details: Several beers daily Substance use: current Substance use type: marijuana Do You Feel Safe in your Home?: Yes Lack of Transportation: No Lack of Food: Never True Current Housing: I Have Housing Concerned About Future Housing: No Difficulty Paying Gas/Electric Bills: No Difficulty Paying for Meds: No Currently Unemployed: No Education: High School Diploma/GED Difficulty w/ Childcare or Family Care: No Living arrangements: alone Occupation/Education: occupation Additional occupation/education comments: [employer] Gender identity (if verbalized by the patient): Female Sexual Orientation (if Verbalized by the Patient): Straight or Heterosexual Spiritual care concerns: No Meds Home Medications and Allergies Home Medications ?Medication ?Instructions ?Recorded ?Confirmed ?Type albuterol sulfate 90 mcg/actuation 2 puff inhalation Q6H PRN 08/07/24 08/12/24 History aerosol inhaler shortness of breath or wheezing losartan 25 mg tablet 25 mg PO DAILY 08/07/24 08/12/24 History Allergies Allergy/AdvReac Type Severity Reaction Status Date / Time morphine Allergy Rash Verified 08/12/24 17:36 adhesive tape AdvReac Intermediate Rash Verified 08/12/24 17:36 Vital Signs Vital Signs - 24 hr 08/12/24 12:44 08/12/24 12:44 08/12/24 12:44 Temperature Pulse Rate 100 100 Respiratory Rate 18 18 Blood Pressure 145/77 H 145/77 H Pulse Oximetry 99 100 100 Oxygen Delivery Room Air 08/12/24 14:47 08/12/24 16:11 08/12/24 16:46 Temperature Pulse Rate 85 85 Respiratory Rate 18 13 Blood Pressure 105/53 L 132/62 Pulse Oximetry 98 100 Oxygen Delivery Room Air 08/12/24 20:00 08/12/24 22:50 08/13/24 06:00 Temperature 98.2 F 98.1 F Pulse Rate 88 95 Respiratory Rate 20 18 Blood Pressure 142/62 H 147/72 H Pulse Oximetry 98 97 Oxygen Delivery Room Air 08/13/24 07:30 08/13/24 07:42 Temperature Pulse Rate Respiratory Rate Blood Pressure Pulse Oximetry 97 Oxygen Delivery Room Air Room Air Exam 2 Const: General: cooperative, comfortable and thin Resp: Effort & Inspection: normal respiratory effort and able to speak in complete sentences Cardio: Rate: regular rate GI: Inspection: normal to inspection GI Palp: No abdominal tenderness, Yes Soft to palpation and Yes Tenderness to palpation present (GI) (mild tenderness in the RLQ) Skin: General skin exam: normal color Psych: Appearance: grossly normal Mental Status: mental status grossly normal Speech and movement: Normal speech and movement present Results Labs 08/13/24 05:31 08/13/24 05:31 Labs: Short CBC 08/12/24 08/13/24 Range/Units 14:31 05:31 WBC 8.7 6.3 (4.5-10.0) K/mm3 Hgb 12.1 10.9 L (12.0-15.0) g/dL Hct 36.8 L 34.2 L (37.0-47.0) % Plt Count 388 H 373 (150-375) k/mm3 BMP 08/12/24 08/13/24 15:49 05:31 Sodium 133 L 132 L Potassium 4.0 3.7 Chloride 98 99 Carbon Dioxide 29 28 BUN 12 D 6 L D Creatinine 0.59 L 0.51 L Glucose 106 120 H Calcium 9.0 8.7 Liver Function 08/12/24 08/13/24 Range/Units 15:49 05:31 Total Bilirubin 0.7 0.4 (0.2-1.3) mg/dL AST 40 H 28 (14-36) U/L ALT 45 H 34 (6-35) U/L Alkaline Phosphatase 99 85 (38-126) U/L Albumin 3.7 3.3 L (3.5-5.1) g/dL
[2024-08-13] MEDS: LORazepam INJ (*CRX) 2 MG/ML VIAL 1 MG IV PUSH ×2 (12:18→17:51)
--- NOTE | 2024-08-13 13:30 | P.PNIM_ITS ---
Progress Note: A&P Assessment and Plan (1) Dilated bile duct: Code(s): K83.8 - Other specified diseases of biliary tract Status: Acute Assessment and Plan: CBD to 8 mm and pancreatic duct to 3 mm with possible 13 mm soft tissue mass at sphincter of Oddi and gallstone adherent to gallbladder wall, GI consulted * MRCP pending results * trend enzymes T bili normal * Pain management * Antiemetics (2) Adnexal mass: Code(s): N94.89 - Other specified conditions associated with female genital organs and menstrual cycle Status: Acute Assessment and Plan: Large complex left adnexal mass noted on CT scan as seemingly incidental finding since pain is on right side, OBGYN consulted. Patient has history of hysterectomy * MRI recommended, this order has been placed plan for 08/14/2024 * CA-125 pending * follow-up o/p with referral to MORTGAGE MANAGER oncology per consult (3) Hyponatremia: Code(s): E87.1 - Hypo-osmolality and hyponatremia Status: Acute Assessment and Plan: Mild hyponatremia noted, sodium 132 POA * Sodium 133 in ER on 08/12 * Trend (4) Tobacco abuse: Code(s): Z72.0 - Tobacco use Status: Acute Assessment and Plan: * Nicotine patch ordered * Remove at night * Educated and encouraged on smoking cessation Plan Code status: Full code per patient DVT prophylaxis: Low indication Stress ulcer prophylaxis: NA PT/OT notes: Ambulatory Disposition: Patient admitted to the medical unit for dilated pancreatic duct with possible mass as well as noted mass on adnexal GI and OBGYN or consulted patient underwent MRCP today will have MR pelvis tomorrow plan for follow-up outpatient with OBGYN further interventions pending MRCP. Patient is ambulatory on own insert return discharge medically stable follow-up with OBGYN and possible referral Ob Oncology. Time Spent With Patient Time with patient: 15 - 25 minutes Subjective Date/time seen: 08/13/24 13:30 Interval history: Patient is a 59-year-old female admitted for pancreatic duct dilation mass in the sphincter as well as adenexal mass, GI in OBGYN have been consulted. 08/13/2024: Patient tolerating diet but having mild ABD upper gastric pain and bloating. Review of Systems Review of Systems: All systems reviewed & are unremarkable except as noted in HPI and below Exam Narrative: GENERAL: NAD HEAD: Normocephalic, atraumatic. ENT:? Mucous membranes moist. CHEST: Clear to auscultation.? No respiratory distress. HEART: Regular rate and rhythm. ? Normal peripheral pulses. ABDOMEN: Soft, mildly rotund, right lower quadrant tenderness without rebound or guarding EXTREMITIES: Normal range of motion. No peripheral edema. SKIN: Warm dry normal color NEURO: Alert and oriented x3. PSYCH: Mildly anxious Objective Data Vital Signs Vital Signs: Vital Signs - 24 hr 08/12/24 14:47 08/12/24 16:11 08/12/24 16:46 Temperature Pulse Rate 85 85 Respiratory Rate 18 13 Blood Pressure 105/53 L 132/62 Pulse Oximetry 98 100 Oxygen Delivery Room Air 08/12/24 20:00 08/12/24 22:50 08/13/24 06:00 Temperature 98.2 F 98.1 F Pulse Rate 88 95 Respiratory Rate 20 18 Blood Pressure 142/62 H 147/72 H Pulse Oximetry 98 97 Oxygen Delivery Room Air 08/13/24 07:30 08/13/24 07:42 Temperature Pulse Rate Respiratory Rate Blood Pressure Pulse Oximetry 97 Oxygen Delivery Room Air Room Air Intake/Output Intake/Output: Intake & Output 08/10/24 08/11/24 08/12/24 08/13/24 23:59 23:59 23:59 23:59 Intake Total 240 840 Balance 240 840 Meds/Results Medications: Active Medications Generic Name Dose Route Start Last Admin Trade Name Freq PRN Reason Stop Dose Admin Acetaminophen 650 mg 08/12/24 19:15 Acetaminophen 325 Mg Tablet PO Q4H PRN PAIN 1-3 Hydrocodone Bitart/Acetaminophen 1 tab 08/12/24 21:16 08/13/24 09:57 Hydrocodone/Acetaminophen (*Crx) 5-325 Mg Tablet PO 1 tab Q4H PRN Administration Pain Rated 4-6 Albuterol 2 puff 08/12/24 19:13 Albuterol Sulfate (*Sp) Aerosol 1 Puff INHALATION Q6H PRN shortness of breath or wheezing Hydromorphone HCl 0.5 mg 08/12/24 19:16 Hydromorphone Hcl Inj (*Crx) 2 Mg/Ml Vial IV PUSH Q4H PRN Pain Rated 7-10 Lorazepam 1 mg 08/12/24 21:55 08/13/24 12:18 Lorazepam Inj (*Crx) 2 Mg/Ml Vial IV PUSH 1 mg Q8H PRN Administration Anxiety Losartan Potassium 25 mg 08/13/24 09:00 08/13/24 08:50 Losartan Potassium 25 Mg Tablet PO 25 mg DAILY RAMANA Administration Nicotine 1 patch 08/12/24 19:15 08/13/24 08:49 Nicotine (*Pbkc) 21 Mg Patch TRANSDERM 1 patch DAILY RAMANA Administration Ondansetron HCl 4 mg 08/12/24 19:15 Ondansetron Inj 4 Mg/2 Ml Vial IV PUSH Q4H PRN Nausea And Vomiting Labs Labs: Laboratory Results - last 24 hr 08/12/24 08/12/24 08/13/24 14:31 15:49 05:31 WBC 8.7 6.3 RBC 3.74 L 3.48 L Hgb 12.1 10.9 L Hct 36.8 L 34.2 L MCV 98.4 98.3 MCH 32.4 31.3 MCHC 32.9 31.9 L RDW 12.4 12.5 Plt Count 388 H 373 MPV 8.7 8.5 Immature Gran % (Auto) 0.8 H 0.8 H Neut % (Auto) 74.5 H 71.1 Lymph % (Auto) 10.5 L 13.3 L [place] % (Auto) 12.8 H 12.5 H Eos % (Auto) 0.8 1.7 Baso % (Auto) 0.6 0.6 Lymph # (Auto) 0.91 0.84 L [place] # (Auto) 1.1 H 0.8 H Eos # (Auto) 0.1 0.1 Baso # (Auto) 0.1 0.0 Abs Immat Gran (auto) 0.07 H 0.05 H Absolute Neuts (auto) 6.5 4.5 Absolute Nucleated RBC 0.000 0.000 Nucleated RBC % 0.0 0.0 Sodium 133 L 132 L Potassium 4.0 3.7 Chloride 98 99 Carbon Dioxide 29 28 Anion Gap 6 5 BUN 12 D 6 L D Creatinine 0.59 L 0.51 L Estim Creat Clear Calc 63 70 Estimated GFR > 60 > 60 Glucose 106 120 H Calcium 9.0 8.7 Magnesium 2.0 Total Bilirubin 0.7 0.4 AST 40 H 28 ALT 45 H 34 Alkaline Phosphatase 99 85 Total Protein 7.1 6.3 Albumin 3.7 3.3 L Lipase 55 114 Quality If No VTE Prophylaxis Answer both mechanical and pharmacologic: Reason no pharmacologic proph: low risk/not indicated -Patient's previous records reviewed on admission -ER notes reviewed in detail on admission -discussed all findings and current treatment plan with patient/Family/POA -Consultations reviewed for recommendations -Patient's disposition for safe discharge discussed with sample case porter Dictation performed by [employer] direct speech recognition software, therefore celebrity manager variants and typographical errors may occur. Hospitalist MIPS Advance Care Plan I have confirmed that the patient's Advanced Care Plan is present, code status is documented, or surrogate decision maker is listed in patient medical record.: Yes Medication Reconciliation I have utilized all available resources to obtain, update and review the patients current medications (includes all prescriptions, OTC, herbals, cannabis, and nutritional supplements).: Yes The patient is not eligible for med reconciliation; the patient is in a emergent medical situation where delaying treatment would jeopardize the patients health .: No
[2024-08-13 14:00] VITALS: BP 118/48; PULSE 92; RESP 18; TEMP 36.6; O2SAT 98
--- NOTE | 2024-08-13 17:48 | P.PNGI_ITS ---
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 2 primary tumors (ampulla and ovary). For comprehensive evaluation and management, referral to a highly specialized tertiary care center is recommended. The ideal approach would involve an exploratory laparotomy combined with an endoscopic ultrasound of the ampulla, performed during a single admission. We have established good connections with the invasive gastroenterology team at [facility] and are ready to assist with coordination if transfer to that institution is decided by the FULFILLMENT COORDINATOR team. (2) Adnexal mass: Code(s): N94.89 - Other specified conditions associated with female genital organs and menstrual cycle Status: Acute Subjective Date/time seen: 08/13/24 17:48 Objective Data Vital Signs Vital Signs: Vital Signs - 24 hr 08/12/24 20:00 08/12/24 22:50 08/13/24 06:00 Temperature 98.2 F 98.1 F Pulse Rate 88 95 Respiratory Rate 20 18 Blood Pressure 142/62 H 147/72 H Pulse Oximetry 98 97 Oxygen Delivery Room Air 08/13/24 07:30 08/13/24 07:42 08/13/24 14:00 Temperature 97.8 F Pulse Rate 92 Respiratory Rate 18 Blood Pressure 118/48 L Pulse Oximetry 97 98 Oxygen Delivery Room Air Room Air Intake/Output Intake/Output: Intake & Output 08/10/24 08/11/24 08/12/24 08/13/24 23:59 23:59 23:59 23:59 Intake Total 240 840 Balance 240 840 Meds/Results Medications: Active Medications Generic Name Dose Route Start Last Admin Trade Name Freq PRN Reason Stop Dose Admin Acetaminophen 650 mg 08/12/24 19:15 Acetaminophen 325 Mg Tablet PO Q4H PRN PAIN 1-3 Hydrocodone Bitart/Acetaminophen 1 tab 08/12/24 21:16 08/13/24 09:57 Hydrocodone/Acetaminophen (*Crx) 5-325 Mg Tablet PO 1 tab Q4H PRN Administration Pain Rated 4-6 Albuterol 2 puff 08/12/24 19:13 Albuterol Sulfate (*Sp) Aerosol 1 Puff INHALATION Q6H PRN shortness of breath or wheezing Hydromorphone HCl 0.5 mg 08/12/24 19:16 Hydromorphone Hcl Inj (*Crx) 2 Mg/Ml Vial IV PUSH Q4H PRN Pain Rated 7-10 Lorazepam 1 mg 08/12/24 21:55 08/13/24 12:18 Lorazepam Inj (*Crx) 2 Mg/Ml Vial IV PUSH 1 mg Q8H PRN Administration Anxiety Losartan Potassium 25 mg 08/13/24 09:00 08/13/24 08:50 Losartan Potassium 25 Mg Tablet PO 25 mg DAILY RAMANA Administration Nicotine 1 patch 08/12/24 19:15 08/13/24 08:49 Nicotine (*Pbkc) 21 Mg Patch TRANSDERM 1 patch DAILY RAMANA Administration Ondansetron HCl 4 mg 08/12/24 19:15 Ondansetron Inj 4 Mg/2 Ml Vial IV PUSH Q4H PRN Nausea And Vomiting Senna/Docusate Sodium 1 tab 08/13/24 17:42 Senna/Docusate Sodium Tablet PO BID PRN Constipation Radiology Results: ITS Impressions MRCP 08/13/24 16:25 IMPRESSION: 1. 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 Recommend endoscopy for further evaluation. 2. Incompletely visualized large complex cystic lesion arising from the pelvis and extending into the lower abdomen. See separate pelvic MRI for further detail. 3. Small amount of ascites. Labs Labs: Laboratory Results - last 24 hr 08/13/24 05:31 WBC 6.3 RBC 3.48 L Hgb 10.9 L Hct 34.2 L MCV 98.3 MCH 31.3 MCHC 31.9 L RDW 12.5 Plt Count 373 MPV 8.5 Immature Gran % (Auto) 0.8 H Neut % (Auto) 71.1 Lymph % (Auto) 13.3 L [place] % (Auto) 12.5 H Eos % (Auto) 1.7 Baso % (Auto) 0.6 Lymph # (Auto) 0.84 L [place] # (Auto) 0.8 H Eos # (Auto) 0.1 Baso # (Auto) 0.0 Abs Immat Gran (auto) 0.05 H Absolute Neuts (auto) 4.5 Absolute Nucleated RBC 0.000 Nucleated RBC % 0.0 Sodium 132 L Potassium 3.7 Chloride 99 Carbon Dioxide 28 Anion Gap 5 BUN 6 L D Creatinine 0.51 L Estim Creat Clear Calc 70 Estimated GFR > 60 Glucose 120 H Calcium 8.7 Magnesium 2.0 Total Bilirubin 0.4 AST 28 ALT 34 Alkaline Phosphatase 85 Total Protein 6.3 Albumin 3.3 L Lipase 114
[2024-08-13] MEDS: SENNA/DOCUSATE SODIUM TABLET 1 TAB PO (17:51)
[2024-08-13 22:11] VITALS: BP 157/64; PULSE 101; RESP 20; TEMP 36.8; O2SAT 98
[2024-08-14 02:54] LABS: CA-125 79 U/mL (<35)
[2024-08-14 05:45] LABS: Hematocrit 33.7 % (37.0-47.0); Hemoglobin 10.7 g/dL (12.0-15.0); Mean Corpuscular HGB Conc 31.8 g/dl (32-36); Mean Corpuscular Hemoglobin 31.5 pg (26-34); Mean Corpuscular Volume 99.1 fl (80-100); Mean Platelet Volume 8.5 fl (7.4-10.4); Platelet Count Result 408 k/mm3 (150-375); Red Cell Distribution Width 12.7 % (11.5-14.5); White Blood Count 6.1 K/mm3 (4.5-10.0)
[2024-08-14 06:00] VITALS: BP 144/72; PULSE 100; RESP 18; TEMP 36.7; O2SAT 97
[2024-08-14 06:00] LABS: Alanine Aminotransferase 41 U/L (6-35); Albumin Level 3.3 g/dL (3.5-5.1); Alkaline Phosphatase 97 U/L (38-126); Anion Gap 7 mmol/L (4-12); Aspartate Amino Transferase 40 U/L (14-36); Bilirubin,Total 0.3 mg/dL (0.2-1.3); Blood Urea Nitrogen 9 mg/dL (7-17); Calcium 8.7 mg/dL (8.4-10.2); Carbon Dioxide 26 mmol/L (22-30); Chloride 97 mmol/L (98-107); Estimated CRCL calculation 73 ml/min; Estimated Glomerular Filt Rate > 60; Glucose 112 mg/dL (65-110); Potassium 3.9 mmol/L (3.4-5.0); Sodium 130 mmol/L (137-145); Total Protein 6.4 g/dL (6.3-8.2)
[2024-08-14] MEDS: NICOTINE (*PBKC) 21 MG PATCH 1 PATCH TRANSDERM (08:58)
[2024-08-14] MEDS: LOSARTAN POTASSIUM 25 MG TABLET PO (08:59)
[2024-08-14] MEDS: HYDROcodone/acetaminophen (*CRX) 5-325 MG TABLET 1 TAB PO ×2 (09:01→17:20)
[2024-08-14] MEDS: LORazepam INJ (*CRX) 2 MG/ML VIAL 1 MG IV PUSH ×2 (12:06→23:05)
[2024-08-14 14:00] VITALS: BP 123/46; PULSE 89; RESP 16; TEMP 36.4; O2SAT 100
--- NOTE | 2024-08-14 15:48 | P.PNIM_ITS ---
Progress Note: A&P Assessment and Plan (1) Dilated bile duct: Code(s): K83.8 - Other specified diseases of biliary tract Status: Acute Assessment and Plan: CBD to 8 mm and pancreatic duct to 3 mm with possible 13 mm soft tissue mass at sphincter of Oddi and gallstone adherent to gallbladder wall, GI consulted * MRCP showed 1.3cm ampulla mass * MRI abd and pelvis pending Liver enzymes wnl GI following f/u result of MRI (2) Adnexal mass: Code(s): N94.89 - Other specified conditions associated with female genital organs and menstrual cycle Status: Acute Assessment and Plan: Large complex left adnexal mass noted on CT scan as seemingly incidental finding since pain is on right side, OBGYN consulted. 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 * f/u MRI (3) Hyponatremia: Code(s): E87.1 - Hypo-osmolality and hyponatremia Status: Acute Assessment and Plan: Mild hyponatremia noted, sodium 132 POA * Sodium 133 in ER on 08/12 * Trend (4) Tobacco abuse: Code(s): Z72.0 - Tobacco use Status: Acute Assessment and Plan: * Nicotine patch ordered * Remove at night * Educated and encouraged on smoking cessation Plan Code status: Full code per patient DVT prophylaxis: Low indication Stress ulcer prophylaxis: NA PT/OT notes: Ambulatory Disposition: awaiting MRi for possible discharge Subjective Date/time seen: 08/14/24 15:48 Interval history: Comfortable at bedside awaiting MRI abd and pelvis Review of Systems Review of Systems: All systems reviewed & are unremarkable except as noted in HPI and below Exam Narrative: GENERAL: NAD HEAD: Normocephalic, atraumatic. ENT:? Mucous membranes moist. CHEST: Clear to auscultation.? No respiratory distress. HEART: Regular rate and rhythm. ? Normal peripheral pulses. ABDOMEN: Soft, mildly rotund, right lower quadrant tenderness without rebound or guarding EXTREMITIES: Normal range of motion. No peripheral edema. SKIN: Warm dry normal color NEURO: Alert and oriented x3. PSYCH: Mildly anxious Objective Data Vital Signs Vital Signs: Vital Signs - 24 hr 08/13/24 20:00 08/13/24 22:11 08/14/24 06:00 Temperature 98.2 F 98.1 F Pulse Rate 101 H 100 Respiratory Rate 20 18 Blood Pressure 157/64 H 144/72 H Pulse Oximetry 98 97 Oxygen Delivery Room Air 08/14/24 14:00 Temperature 97.5 F L Pulse Rate 89 Respiratory Rate 16 Blood Pressure 123/46 L Pulse Oximetry 100 Oxygen Delivery Intake/Output Intake/Output: Intake & Output 08/11/24 08/12/24 08/13/24 08/14/24 23:59 23:59 23:59 23:59 Intake Total 240 1560 Balance 240 1560 Meds/Results Medications: Active Medications Generic Name Dose Route Start Last Admin Trade Name Freq PRN Reason Stop Dose Admin Acetaminophen 650 mg 08/12/24 19:15 Acetaminophen 325 Mg Tablet PO Q4H PRN PAIN 1-3 Hydrocodone Bitart/Acetaminophen 1 tab 08/12/24 21:16 06/11/25 09:01 Hydrocodone/Acetaminophen (*Crx) 5-325 Mg Tablet PO 1 tab Q4H PRN Administration Pain Rated 4-6 Albuterol 2 puff 08/12/24 19:13 Albuterol Sulfate (*Sp) Aerosol 1 Puff INHALATION Q6H PRN shortness of breath or wheezing Hydromorphone HCl 0.5 mg 08/12/24 19:16 Hydromorphone Hcl Inj (*Crx) 2 Mg/Ml Vial IV PUSH Q4H PRN Pain Rated 7-10 Lorazepam 1 mg 08/12/24 21:55 08/14/24 12:06 Lorazepam Inj (*Crx) 2 Mg/Ml Vial IV PUSH 1 mg Q8H PRN Administration Anxiety Losartan Potassium 25 mg 08/13/24 09:00 08/14/24 08:59 Losartan Potassium 25 Mg Tablet PO 25 mg DAILY RAMANA Administration Nicotine 1 patch 08/12/24 19:15 08/14/24 08:58 Nicotine (*Pbkc) 21 Mg Patch TRANSDERM 1 patch DAILY RAMANA Administration Ondansetron HCl 4 mg 08/12/24 19:15 Ondansetron Inj 4 Mg/2 Ml Vial IV PUSH Q4H PRN Nausea And Vomiting Senna/Docusate Sodium 1 tab 08/13/24 17:42 08/13/24 17:51 Senna/Docusate Sodium Tablet PO 1 tab BID PRN Administration Constipation Radiology Results: ITS Impressions MRCP 08/13/24 16:25 IMPRESSION: 1. 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 Recommend endoscopy for further evaluation. 2. Incompletely visualized large complex cystic lesion arising from the pelvis and extending into the lower abdomen. See separate pelvic MRI for further detail. 3. Small amount of ascites. Labs Labs: Laboratory Results - last 24 hr 08/13/24 08/14/24 05:29 05:21 WBC 6.1 RBC 3.40 L Hgb 10.7 L Hct 33.7 L MCV 99.1 MCH 31.5 MCHC 31.8 L RDW 12.7 Plt Count 408 H MPV 8.5 Sodium 130 L Potassium 3.9 Chloride 97 L Carbon Dioxide 26 Anion Gap 7 BUN 9 Creatinine 0.49 L Estim Creat Clear Calc 73 Estimated GFR > 60 Glucose 112 H Calcium 8.7 Total Bilirubin 0.3 AST 40 H ALT 41 H Alkaline Phosphatase 97 Total Protein 6.4 Albumin 3.3 L CA 125 Antigen 79 H
--- NOTE | 2024-08-14 16:49 | P.PNGI_ITS ---
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 We have already initiated coordination with the [facility]. The plan is for them to evaluate her as an inpatient if she is transferred for the management of her large adnexal mass. If not, they will reach out to her directly to schedule an outpatient endoscopic ultrasound. Subjective Date/time seen: 08/14/24 16:49 Interval history: The patient did not have further abdominal pain or Other symptoms today. Exam Narrative: Abdominal exam unchanged from baseline. Objective Data Vital Signs Vital Signs: Vital Signs - 24 hr 08/13/24 20:00 08/13/24 22:11 08/14/24 06:00 Temperature 98.2 F 98.1 F Pulse Rate 101 H 100 Respiratory Rate 20 18 Blood Pressure 157/64 H 144/72 H Pulse Oximetry 98 97 Oxygen Delivery Room Air 08/14/24 14:00 Temperature 97.5 F L Pulse Rate 89 Respiratory Rate 16 Blood Pressure 123/46 L Pulse Oximetry 100 Oxygen Delivery Intake/Output Intake/Output: Intake & Output 08/11/24 08/12/24 08/13/24 08/14/24 23:59 23:59 23:59 23:59 Intake Total 240 1560 Balance 240 1560 Meds/Results Medications: Active Medications Generic Name Dose Route Start Last Admin Trade Name Freq PRN Reason Stop Dose Admin Acetaminophen 650 mg 08/12/24 19:15 Acetaminophen 325 Mg Tablet PO Q4H PRN PAIN 1-3 Hydrocodone Bitart/Acetaminophen 1 tab 08/12/24 21:16 08/14/24 09:01 Hydrocodone/Acetaminophen (*Crx) 5-325 Mg Tablet PO 1 tab Q4H PRN Administration Pain Rated 4-6 Albuterol 2 puff 08/12/24 19:13 Albuterol Sulfate (*Sp) Aerosol 1 Puff INHALATION Q6H PRN shortness of breath or wheezing Hydromorphone HCl 0.5 mg 08/12/24 19:16 Hydromorphone Hcl Inj (*Crx) 2 Mg/Ml Vial IV PUSH Q4H PRN Pain Rated 7-10 Lorazepam 1 mg 08/12/24 21:55 08/14/24 12:06 Lorazepam Inj (*Crx) 2 Mg/Ml Vial IV PUSH 1 mg Q8H PRN Administration Anxiety Losartan Potassium 25 mg 08/13/24 09:00 08/14/24 08:59 Losartan Potassium 25 Mg Tablet PO 25 mg DAILY RAMANA Administration Nicotine 1 patch 08/12/24 19:15 08/14/24 08:58 Nicotine (*Pbkc) 21 Mg Patch TRANSDERM 1 patch DAILY RAMANA Administration Ondansetron HCl 4 mg 08/12/24 19:15 Ondansetron Inj 4 Mg/2 Ml Vial IV PUSH Q4H PRN Nausea And Vomiting Senna/Docusate Sodium 1 tab 08/13/24 17:42 08/13/24 17:51 Senna/Docusate Sodium Tablet PO 1 tab BID PRN Administration Constipation Radiology Results: ITS Impressions MRCP 08/13/24 16:25 IMPRESSION: 1. 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 Recommend endoscopy for further evaluation. 2. Incompletely visualized large complex cystic lesion arising from the pelvis and extending into the lower abdomen. See separate pelvic MRI for further detail. 3. Small amount of ascites. Labs Labs: Laboratory Results - last 24 hr 08/13/24 08/14/24 05:29 05:21 WBC 6.1 RBC 3.40 L Hgb 10.7 L Hct 33.7 L MCV 99.1 MCH 31.5 MCHC 31.8 L RDW 12.7 Plt Count 408 H MPV 8.5 Sodium 130 L Potassium 3.9 Chloride 97 L Carbon Dioxide 26 Anion Gap 7 BUN 9 Creatinine 0.49 L Estim Creat Clear Calc 73 Estimated GFR > 60 Glucose 112 H Calcium 8.7 Total Bilirubin 0.3 AST 40 H ALT 41 H Alkaline Phosphatase 97 Total Protein 6.4 Albumin 3.3 L CA 125 Antigen 79 H
[2024-08-14] MEDS: ACETAMINOPHEN 325 MG TABLET 650 MG PO (20:48)
[2024-08-14 20:56] VITALS: BP 112/68; PULSE 89; RESP 18; TEMP 36.7; O2SAT 98
[2024-08-15 02:08] LABS: CA 19-9 22 U/mL (<34); CA-125 92 U/mL (<35)
[2024-08-15 06:00] VITALS: BP 106/58; PULSE 91; RESP 18; TEMP 37; O2SAT 95
[2024-08-15 06:08] LABS: Basophils Percent Auto 0.5 % (0.2-1.2); Eosinophils Absolute Auto 0.1 K/mm3 (0-0.3); Eosinophils Percent Auto 1.2 % (0-4.4); Hematocrit 34.3 % (37.0-47.0); Hemoglobin 11.1 g/dL (12.0-15.0); Immature Granulocyte Absolute 0.02 K/mm3 (0.00-0.031); Immature Granulocyte Percent A 0.3 % (0-0.5); Lymphocytes Percent Auto 13.6 % (18.3-44.2); Mean Corpuscular HGB Conc 32.4 g/dl (32-36); Mean Corpuscular Hemoglobin 31.6 pg (26-34); Mean Corpuscular Volume 97.7 fl (80-100); Mean Platelet Volume 8.3 fl (7.4-10.4); Monocytes Absolute Auto 0.7 K/mm3 (0.1-0.6); Monocytes Percent Auto 9.8 % (2.6-8.5); Neutrophils Percent Auto 74.6 % (45.5-73.1); Platelet Count Result 418 k/mm3 (150-375); Red Blood Count 3.51 M/mm3 (4.2-5.4); Red Cell Distribution Width 12.7 % (11.5-14.5); White Blood Count 6.6 K/mm3 (4.5-10.0)
[2024-08-15 06:20] LABS: Alanine Aminotransferase 57 U/L (6-35); Albumin Level 3.3 g/dL (3.5-5.1); Alkaline Phosphatase 92 U/L (38-126); Anion Gap 5 mmol/L (4-12); Aspartate Amino Transferase 55 U/L (14-36); Bilirubin,Total 0.3 mg/dL (0.2-1.3); Blood Urea Nitrogen 9 mg/dL (7-17); Calcium 8.7 mg/dL (8.4-10.2); Carbon Dioxide 27 mmol/L (22-30); Chloride 99 mmol/L (98-107); Estimated CRCL calculation 74 ml/min; Estimated Glomerular Filt Rate > 60; Glucose 107 mg/dL (65-110); Potassium 4.3 mmol/L (3.4-5.0); Sodium 131 mmol/L (137-145); Total Protein 6.4 g/dL (6.3-8.2)
[2024-08-15] MEDS: NICOTINE (*PBKC) 21 MG PATCH 1 PATCH TRANSDERM (08:05)
[2024-08-15] MEDS: LOSARTAN POTASSIUM 25 MG TABLET PO (08:05)
[2024-08-15] MEDS: SENNA/DOCUSATE SODIUM TABLET 1 TAB PO (08:11)
[2024-08-15] MEDS: HYDROcodone/acetaminophen (*CRX) 5-325 MG TABLET 1 TAB PO (08:11)
--- NOTE | 2024-08-15 10:18 | P.DS_ITS ---
DS: Admitting Diagnosis Discharge Date 08/15/24 Admitting Diagnosis Abdominal pain, abnormal imaging DS: Discharge Diagnosis Discharge Diagnosis (1) Adnexal mass: Code(s): N94.89 - Other specified conditions associated with female genital organs and menstrual cycle Status: Acute DS: Summary Hospital Course Hospital Course: This is a 59-year-old female patient who was admitted to the hospital due to abdominal pain with abnormal imaging. Patient started having diarrhea on 08/05/24 after eating lunch. She continued the diarrhea for the next 3 days while developing right lower quadrant abdominal pain. Patient was seen at [facility] on 08/07 and told likely gastroenteritis. On 08/11 patient came to ER where she had CT scan which showed concern for CBD dilation with possible soft tissue mass at the sphincter of Oddi and complex mass of left ovary. Ultrasound of RUQ and pelvis completed. RUQ US showed dilation of CBD and pancreatic duct and a likely gallstone stuck to the gallbladder wall as well concerning for possible choledocholithiasis. Pelvis US showed complex left adnexal cyst which likely included the left ovary. MRCP and MRI pelvis were recommended. Patient ended up leaving against medical advice from ER because she had no one to come get her merida and take care of her dogs. She returned back to ER today on 08/12 to be admitted for further recommended imaging. GI was consulted by ER. CONSTRUCTION INSPECTOR not yet consulted. Prior history over 20 years ago of hysterectomy and her previous CONSTRUCTION INSPECTOR . Patient does not have a primary care provider or any other care team members. She lives closer to [place] but her daughter brings her this way when needed. GI and DESKTOP SUPPORT ASSOCIATE were consulted, patient underwent MRCP which showed 1.3 cm mas at the ampulla, and Pelvic MRI showed 19.4 x 12.3 x 13.1cm complex cystic mass with some enhancing soft tissue filling the pelvis and extrendign to the left lower quadrant. Patient will follow up PCO in 3-5 days F/u with GI and DESKTOP SUPPORT ASSOCIATE as instructed for further management of the tumors. Time Spent with Patient Time attestation: Total time spent providing and/or coordinating discharge services: DS: Data Data Completed and Pending Labs on day of discharge: Labs from last 24 hours 08/15/24 08/13/24 05:39 19:18 WBC 6.6 RBC 3.51 L Hgb 11.1 L Hct 34.3 L MCV 97.7 MCH 31.6 MCHC 32.4 RDW 12.7 Plt Count 418 H MPV 8.3 Immature Gran % (Auto) 0.3 Neut % (Auto) 74.6 H Lymph % (Auto) 13.6 L [place] % (Auto) 9.8 H Eos % (Auto) 1.2 Baso % (Auto) 0.5 Lymph # (Auto) 0.90 [place] # (Auto) 0.7 H Eos # (Auto) 0.1 Baso # (Auto) 0.0 Abs Immat Gran (auto) 0.02 Absolute Neuts (auto) 5.0 Absolute Nucleated RBC 0.000 Nucleated RBC % 0.0 Sodium 131 L Potassium 4.3 Chloride 99 Carbon Dioxide 27 Anion Gap 5 BUN 9 Creatinine 0.48 L Estim Creat Clear Calc 74 Estimated GFR > 60 Glucose 107 Calcium 8.7 Magnesium 2.0 Total Bilirubin 0.3 AST 55 H ALT 57 H Alkaline Phosphatase 92 Total Protein 6.4 Albumin 3.3 L CA 19-9 Antigen 22 CA 125 Antigen 92 H Discharge Plan Discharge Attending physician on discharge: Tianna Bruner Consulting providers: Alfa Hernandez; Elaine El; Parminder Russ Discharging Clinician: Tianna Bruner Anticipated Discharge Date/Time: 08/15/24 10:14 Patient Disposition: Home Activity: as tolerated Diet: as tolerated Patient Instructions: Antibiotic Form Patient Language: Korean Stand Alone Forms: General Discharge Information Follow-up/Referrals: Parminder Russ MD [Physician] - (F/u with DESKTOP SUPPORT ASSOCIATE as instructed ) PHYSICIAN,SUPPORT ASSOCIATE [Primary Care Provider] - (F/u with PCP in 3-5 days) Hesham Woodard MD [Physician] - (F/u with GI as instructed) Discharge Medications: New hydrocodone-acetaminophen 5-325 mg Tablet 1 tablet PO Q4H PRN (Reason: Pain Rated 4-6) 7 Days Qty: 12 0RF Continued losartan 25 mg tablet 25 mg PO DAILY albuterol sulfate 90 mcg/actuation HFA aerosol inhaler 2 puff INHALATION Q6H PRN (Reason: shortness of breath or wheezing) Date of admission: 08/14/24 10:11 Primary Care Provider: PHYSICIAN,SUPPORT ASSOCIATE Admitting Provider: Sue Mascorro Attending physician on admission: Sue Mascorro Condition: Stable
== END 2024-08-15 11:18 | disposition home or self-care (01) | DRG 445 ==
LOC: ANHED 13:48 → ANH3MED 15:56
PROVIDERS: Internal Medicine Gastroenterology; Nurse Practitioner; Nurse Practitioner Family; Student in an Organized Health Care Education/Training Program; Admitting Provider Family Medicine; Emergency Provider General Practice; Visit Provider Internal Medicine
DX: K83.8 Other specified diseases of biliary tract (principal); E87.1 Hypo-osmolality and hyponatremia; N94.89 Other specified conditions associated with female genital organs and menstrual cycle; R19.7 Diarrhea, unspecified; F17.210 Nicotine dependence, cigarettes, uncomplicated; F10.10 Alcohol abuse, uncomplicated
CPT/HCPCS: 36415; 72197; 74183; 76376; 80053; 83690; 83735; 85025; 85027; 86301; 86304; 96374; 96375; 99285; A9270; A9577; A9579; G0378; G0379; J2060